=== PATIENT | female | born 1990 | race Caucasian/White ===

== ENCOUNTER 2017-01-04 16:41 | Emergency (ER) | payer OTHER ==
[2017-01-04 17:48] LABS: Basophils # (A) 0.1 k/uL (0-0.2); Basophils % (A) 1 %; CH 29.8; CHCM 33.2; Eosinophils % (A) 1 %; HCT 36.9 % (34.0-46.0); HDW 2.56; HGB 12.1 gm/dL (11.4-16.0); Luc # (Auto) 0.08; Luc % (Auto) 1; Lymphocytes # (A) 0.9 k/uL (1.0-4.8); Lymphocytes % (A) 14 %; MCH 29.7 pg (25.0-35.0); MCHC 32.9 g/dL (31.0-37.0); MCV 90.3 fL (80.0-100.0); Mean Platelet Volume 6.7; Monocytes # (A) 0.3 k/uL (0-1.0); Monocytes % (A) 4 %; Neutrophils # (A) 5.2 k/uL (1.3-7.7); Neutrophils % (A) 80 %; RBC 4.09 m/uL (3.80-5.40); WBC 6.6 k/uL (3.8-10.6); WBC (Perox) 6.57
[2017-01-04] MEDS ORDERED: ALPRAZolam 0.5 MG TAB PO STA (17:52)
[2017-01-04] MEDS ORDERED: SODIUM CHLORIDE 0.9% 1,000 ML IV ONE (17:53)
[2017-01-04] MEDS ORDERED: ONDANSETRON 4 MG/2 ML VIAL IVP STA (17:53)
[2017-01-04 18:05] LABS: ALT 22 U/L (9-52); AST 22 U/L (14-36); Alkaline Phosphatase 47 U/L (38-126); Anion Gap 12 mmol/L; Blood Urea Nitrogen 5 mg/dL (7-17); Calcium 9.9 mg/dL (8.4-10.2); Carbon Dioxide 23 mmol/L (22-30); Chloride 101 mmol/L (98-107); Glucose 96 mg/dL (74-99); Non-African American GFR(MDRD) >60 (>60 ml/min/1.73 sqM); Potassium 4.7 mmol/L (3.5-5.1); Sodium 136 mmol/L (137-145); Total Bilirubin 0.6 mg/dL (0.2-1.3); Total Protein 7.5 g/dL (6.3-8.2)
--- NOTE | 2017-01-04 18:11 | ED ---
Seizure HPI - General Chief Complaint: Seizure Stated Complaint: seizure, confusion Time Seen by Provider: 01/04/17 16:58 Source: patient, family, RN notes reviewed Mode of arrival: wheelchair Limitations: no limitations - History of Present Illness Initial Comments: Patient is a 26-year-old female since emergency room for evaluation of seizure. Patient's mother is present with patient. Patient's mother states that patient has a history of epilepsy. Patient's mother states that patient takes 1 mg Xanax 4 times a day for seizures. Patient's mother states that patient ran out of her prescription Thursday night. Patient's mother states they're unable to get a refill this weekend. Patient's mother states that patient had 2 small seizures yesterday. Patient's mother stated that patient had a grand mal seizure today while standing in the kitchen. Patient's mother states that patient was holding a pole and dropped to the ground and had a seizure that lasted about 3 minutes. Patient's mother states that they called her primary care provider told her to come to the emergency room. Patient's mother states that patient hit her head when she fell. Patient states she's having had pain in the back of her head and neck pain. Patient also states having upper back pain. Patient denies dizziness right now patient denies worsening or changes in vision. Patient denies nausea or vomiting. Patient denies chest pain or shortness of breath. Patient denies numbness or tingling going down hands or feet. - Related Data Home Medications Medication Instructions Recorded Confirmed ALPRAZolam [Xanax] 1 mg PO QID 03/02/15 01/04/17 oxyCODONE HCL 15 mg PO TID PRN 03/02/15 01/04/17 Morphine Sulfate ER [Ms Contin] 60 mg PO BID 07/10/16 01/04/17 Topiramate [Topamax] 200 mg PO DAILY 07/10/16 01/04/17 Previous Rx's Medication Instructions Recorded ALPRAZolam [Xanax] 1 mg PO QID 2 Days 01/04/17 Allergies Allergy/AdvReac Type Severity Reaction Status Date / Time ketorolac [From Toradol] Allergy Itching Verified 01/04/17 17:24 acetaminophen AdvReac Severe Liver & Verified 01/04/17 17:24 Kidney Failure amoxicillin AdvReac Abdominal Verified 01/04/17 17:24 Pain azithromycin AdvReac Abdominal Verified 01/04/17 17:24 Pain bupropion HCl AdvReac Seizure Verified 01/04/17 17:24 [From Wellbutrin] divalproex sodium AdvReac Abdominal Verified 01/04/17 17:24 [From Depakote] Pain Review of Systems ROS Statement: Those systems with pertinent positive or pertinent negative responses have been documented in the HPI. ROS Other: All systems not noted in ROS Statement are negative. Past Medical History Past Medical History: Blood Disorder, Seizure Disorder Additional Past Medical History / Comment(s): pancreatitis,anemia, eye disorder? had scar tissue removed in past. History of Any Multi-Drug Resistant Organisms: None Reported Past Surgical History: Ear Surgery Additional Past Surgical History / Comment(s): eye surgeries(scar tissue), tubes in ears, wisdom teeeth removed. Past Anesthesia/Blood Transfusion Reactions: No Reported Reaction Additional Past Anesthesia/Blood Transfusion Reaction / Comment(s): when previous intubate patient swelled up from medication Past Psychological History: Anxiety, Depression Smoking Status: Current every day smoker Past Alcohol Use History: None Reported Past Drug Use History: None Reported - Past Family History Mother Additional Family Medical History / Comment(s): total hysterectomy, cleaned out scar tissue in abdomen, endometriosis, herniated and bulging disc in back Father Additional Family Medical History / Comment(s): bleeding ulcers General Exam - General Exam Comments Initial Comments: Sitting in exam room, no distress. Limitations: no limitations General appearance: alert, in no apparent distress Head exam: Present: atraumatic, normocephalic, normal inspection Eye exam: Present: normal appearance ENT exam: Present: normal exam Neck exam: Present: normal inspection Respiratory exam: Present: normal lung sounds bilaterally. Absent: respiratory distress Cardiovascular Exam: Present: regular rate, normal rhythm, normal heart sounds GI/Abdominal exam: Present: soft, normal bowel sounds. Absent: distended, tenderness, guarding, rebound, rigid Extremities exam: Present: normal inspection Back exam: Present: normal inspection Neurological exam: Present: alert, oriented X3, CN II-XII intact, normal gait Psychiatric exam: Present: normal affect, normal mood Skin exam: Present: warm, dry, intact, normal color. Absent: rash Course Vital Signs 01/04/17 16:53 Temperature 99.2 F Pulse Rate 94 Respiratory 20 Rate Blood Pressure 127/77 O2 Sat by Pulse 98 Oximetry Medical Decision Making - Medical Decision Making Patient is a 26-year-old female presents to the emergency room for evaluation of a seizure. Patient has a history of epileptic seizures. Patient ran out of her medications on Thursday. Patient given a Xanax here and did not have any seizure while she was here. Patient states she is feeling better. Brain and C- spine CT shows no acute findings. Thoracic spine x-ray shows no acute findings. Advised patient to follow-up with primary care provider. Patient's mother states patient has an appointment with her primary care provider tomorrow morning at 9:45 AM. Patient be provided with Xanax until she can follow-up. Return parameters discussed. Case discussed Dr. San. - Lab Data Result diagrams: 01/04/17 17:30 01/04/17 17:30 Lab Results 01/04/17 01/04/17 01/04/17 Range/Units 17:30 17:30 18:23 WBC 6.6 (3.8-10.6) k/uL RBC 4.09 (3.80-5.40) m/uL Hgb 12.1 (11.4-16.0) gm/dL Hct 36.9 (34.0-46.0) % MCV 90.3 (80.0-100.0) fL MCH 29.7 (25.0-35.0) pg MCHC 32.9 (31.0-37.0) g/dL RDW 13.0 (11.5-15.5) % Plt Count 311 (150-450) k/uL Neutrophils % 80 % Lymphocytes % 14 % Monocytes % 4 % Eosinophils % 1 % Basophils % 1 % Neutrophils # 5.2 (1.3-7.7) k/uL Lymphocytes # 0.9 L (1.0-4.8) k/uL Monocytes # 0.3 (0-1.0) k/uL Eosinophils # 0.0 (0-0.7) k/uL Basophils # 0.1 (0-0.2) k/uL Sodium 136 L (137-145) mmol/L Potassium 4.7 (3.5-5.1) mmol/L Chloride 101 (98-107) mmol/L Carbon Dioxide 23 (22-30) mmol/L Anion Gap 12 mmol/L BUN 5 L (7-17) mg/dL Creatinine 0.51 L (0.52-1.04) mg/dL Est GFR (MDRD) Af Amer >60 (>60 ml/min/1.73 sqM) Est GFR (MDRD) Non-Af >60 (>60 ml/min/1.73 sqM) Glucose 96 (74-99) mg/dL Calcium 9.9 (8.4-10.2) mg/dL Total Bilirubin 0.6 (0.2-1.3) mg/dL AST 22 (14-36) U/L ALT 22 (9-52) U/L Alkaline Phosphatase 47 (38-126) U/L Total Protein 7.5 (6.3-8.2) g/dL Albumin 4.4 (3.5-5.0) g/dL Urine Color Light Yellow Urine Appearance Clear (Clear) Urine pH 8.5 H (5.0-8.0) Ur Specific [place] 1.005 (1.001-1.035) Urine Protein Negative (Negative) Urine Glucose (UA) Negative (Negative) Urine Ketones 1+ H (Negative) Urine Blood Negative (Negative) Urine Nitrite Negative (Negative) Urine Bilirubin Negative (Negative) Urine Urobilinogen <2.0 (<2.0) mg/dL Ur Leukocyte Esterase Small H (Negative) Urine WBC 10 H (0-5) /hpf Ur Squamous Epith Cells 1 (0-4) /hpf Urine Bacteria Rare H (None) /hpf Urine Opiates Screen Detected H (NotDetected) Ur Oxycodone Screen Detected H (NotDetected) Urine Methadone Screen Not Detected (NotDetected) Ur Propoxyphene Screen Not Detected (NotDetected) Ur Barbiturates Screen Not Detected (NotDetected) U Tricyclic Antidepress Not Detected (NotDetected) Ur Phencyclidine Scrn Not Detected (NotDetected) Ur Amphetamines Screen Not Detected (NotDetected) U Methamphetamines Scrn Not Detected (NotDetected) U Benzodiazepines Scrn Detected H (NotDetected) Urine Cocaine Screen Not Detected (NotDetected) U Marijuana (THC) Screen Not Detected (NotDetected) - Radiology Data Radiology results: report reviewed, image reviewed Disposition Clinical Impression: Epileptic seizure Disposition: HOME SELF-CARE Condition: Good Instructions: Recurrent Seizures in Adults (ED) Additional Instructions: Take Xanax as directed. Please follow-up with primary care provider in 24-48 hours for reevaluation. If any new symptom arises or symptoms worsen, return to ER as soon as possible. Prescriptions: ALPRAZolam [Xanax] 1 mg PO QID 2 Days Referrals: Francisco Javier Duvall MD [Primary Care Provider] - 1-2 days Time of Disposition: 20:02
[2017-01-04 18:44] LABS: Appearance,Urine Clear (Clear); Bacteria,Urine Rare /hpf; Bilirubin,Urine Negative (Negative); Glucose,Urine (UA) Negative (Negative); Ketones,Urine 1+ (Negative); Leukocyte Esterase,Urine Small (Negative); Nitrite,Urine Negative (Negative); PH, Urine 8.5 (5.0-8.0); Particle Count 2948; Protein,Urine Negative (Negative); Specific Gravity,Urine 1.005 (1.001-1.035); Squamous Epithelial Cell,Urine 1 /hpf (0-4); UA Billing (MACRO vs. MICRO) MICRO; Urobilinogen,Urine <2.0 mg/dL (<2.0); WBC,Urine 10 /hpf (0-5)
[2017-01-04] MEDS ORDERED: MORPHINE SULFATE 2 MG/ML SYRINGE IVP ONE (19:23)
--- NOTE | 2017-01-04 19:30 | CT ---
EXAMINATION TYPE: CT brain cspine wo con DATE OF EXAM: 01/04/2017 7:21 PM COMPARISON: CT brain 02/19/2016 HISTORY: 26-year-old female with multiple seizures today. History of epilepsy. CT DLP: 1238.30 mGycm Automated exposure control for dose reduction was used. Technique: Examination of the head was done in axial plane without intravenous contrast. Coronal and sagittal reconstructions performed. CT of the cervical spine was obtained in axial plane without intravenous injection of contrast mater ial. Coronal and sagittal reformatted images were obtained from the axial views for evaluation of f ractures, spinal alignment and canal. FINDINGS: Head: There is no evidence of acute intracranial hemorrhage, acute ischemic changes, mass, mass-effect, or extra-axial fluid collection. There is no effacement of cerebral sulci or basal subarachnoid cister ns. There is no hydrocephalus. There is no midline shift. De [place]-white matter distinction is preserv ed. Encephalomalacia within the anterior right frontal lobe is unchanged. Patient's gaze is divergent suggesting underlying strabismus. Otherwise, orbits and globes are intact . Paranasal sinuses and mastoid air cells are well pneumatized. Cervical spine: The alignment of the cervical spine is normal on coronal and reformatted images. There is no cranial vertebral abnormality. Fracture of the cervical spine is not seen. There is no evidence of focal disk herniation. There is no central spinal canal stenosis. Sagittal and coronal reformatted images confirm above findings. COMBINED IMPRESSION: 1. No acute intracranial abnormality seen. Stable area of encephalomalacia within the anterior right frontal lobe possibly sequela of prior traumatic insult. Clinically correlate. 2. No acute fracture or malalignment of the cervical spine.
--- NOTE | 2017-01-04 19:38 | XR ---
EXAMINATION TYPE: XR thoracic spine complete DATE OF EXAM: 01/04/2017 7:31 PM COMPARISON: NONE HISTORY: 26-year-old female with back pain after seizure today TECHNIQUE: 3 views FINDINGS: 12 rib-bearing thoracic vertebral bodies. All pedicles are visualized. Vertebral body heights are pre served and alignment is maintained. IMPRESSION: No vertebral compression collapse or malalignment.
[2017-01-04 20:23] VITALS: RESP 18
[2017-01-04 20:25] VITALS: BP 100/75; PULSE 86; TEMP 97.9
== END 2017-01-04 20:26 | disposition home or self-care (01) ==
LOC: EC 16:41
DX: G40.909 Epilepsy, unspecified, not intractable, without status epilepticus (principal); R41.0 Disorientation, unspecified; R51 Headache; M54.2 Cervicalgia; M54.6 Pain in thoracic spine; F32.9 Major depressive disorder, single episode, unspecified; F41.9 Anxiety disorder, unspecified; F17.200 Nicotine dependence, unspecified, uncomplicated; Z79.891 Long term (current) use of opiate analgesic; Z79.899 Other long term (current) drug therapy; Z88.0 Allergy status to penicillin; Z88.1 Allergy status to other antibiotic agents; Z88.6 Allergy status to analgesic agent; Z88.8 Allergy status to other drugs, medicaments and biological substances
CPT/HCPCS: 36415; 80053; 85025; 81001; 80306; 72072; 72125; 70450; 99284; 96374; 96375; 96361 ×2; J2405; J2270

== ENCOUNTER → 2017-01-22 | Outpatient (CLI) | payer OTHER ==
--- NOTE | 2017-01-22 23:11 | EEG ---
DATE OF SERVICE: 01/22/2017 REASON FOR TESTING: Seizures. CURRENT ANTIEPILEPTIC MEDICATIONS: Topamax. DESCRIPTION OF THE PROCEDURE: This EEG was performed using a 21-channel digital electroencephalograph, following international 10-20 system. DESCRIPTION OF THE RECORDING: From the beginning of the tracing, and with the patient's eyes closed, the background rhythm was mostly consisting of 10 to 11 Hz alpha frequency in the posterior occipital leads. No obvious asymmetry is seen. Photic stimulation was performed with a good driving response seen. No pathological waves were elicited. Hyperventilation was performed with a minimal build-up of amplitude seen. Again, no pathological waves were elicited. Clinical jerking activity was noticed by the certified dialysis technician, but this did not correspond with any epileptiform discharges on EEG recording. Frequent muscle and movement artifacts are seen. Near the end of the tracing, occasional spike and slow wave activity is noticed. The patient remains awake throughout the tracing. Her EKG lead showed a regular rate and rhythm. INTERPRETATION: This awake EEG is abnormal due to the presence of rare spike and slow wave activity consistent with epileptiform discharges. At other times during the tracing, the patient did have clinical jerking activity, but this did not correlate with any epileptic activity seen on the EEG tracing. Clinical correlation is recommended.
== END ==
LOC: NEUROMAIN 12:23
PROVIDERS: ATTEND Family Medicine
DX: R94.01 Abnormal electroencephalogram [EEG] (principal)
CPT/HCPCS: 95816

== ENCOUNTER 2017-02-02 17:40 | Inpatient (IN) | payer OTHER ==
[2017-02-02] MEDS ORDERED: SODIUM CHLORIDE 0.9% 1,000 ML IV STA ×2 (18:12→18:29)
[2017-02-02] MEDS ORDERED: LORazepam 2 MG/ML SYRINGE IV STA (18:15)
[2017-02-02] MEDS ORDERED: ALPRAZolam 0.5 MG TAB PO STA (18:20)
[2017-02-02] MEDS ORDERED: diphenhydrAMINE 50 MG/ML 1 ML VIAL IVP STA (18:27)
--- NOTE | 2017-02-02 18:29 | ED ---
General Adult HPI - General Source: patient, RN notes reviewed Mode of arrival: wheelchair Limitations: no limitations <Cain Treadwell - Last Filed: 02/02/17 19:23> <Salvatore Botello - Last Filed: 02/02/17 20:43> - General Chief complaint: Seizure Stated complaint: Seizure Time Seen by Provider: 02/02/17 18:03 - History of Present Illness Initial comments: Patient is a 26-year-old female with significant past medical history of seizures, chronic pain, who presents emergency room today with a chief complaint of "seizure activity". She states that over the last few hours she's been shaking. She states that she is worried about having a grand mal type seizure. She states that she starts to have these shakes before a grand mal seizure. Patient unsure exactly what seizure medication that she's on she states she cannot remember right now. She states she has been taking it. She believes it is not Topamax but this is what is listed on recent medication list. Patient states that she has had some cough congestion and decreased appetite. Patient unaware of fever at triage. She does admit to a sore throat. Patient denies any recent shortness of breath, chest pain, nausea or vomiting, dysuria or hematuria, constipation or diarrhea, headaches or visual changes, or any other complaints. (Cain Treadwell) - Related Data Home Medications Medication Instructions Recorded Confirmed oxyCODONE HCL 15 mg PO TID PRN 03/02/15 02/02/17 Morphine Sulfate ER [Ms Contin] 60 mg PO BID 07/10/16 02/02/17 ALPRAZolam [Xanax] 1 mg PO 5XD PRN 02/02/17 02/02/17 Topiramate [Topamax] 100 mg PO DAILY 02/02/17 02/02/17 Allergies Allergy/AdvReac Type Severity Reaction Status Date / Time ketorolac [From Toradol] Allergy Itching Verified 02/02/17 19:14 acetaminophen AdvReac Severe Liver & Verified 02/02/17 19:14 Kidney Failure amoxicillin AdvReac Abdominal Verified 02/02/17 19:14 Pain azithromycin AdvReac Abdominal Verified 02/02/17 19:14 Pain bupropion HCl AdvReac Seizure Verified 02/02/17 19:14 [From Wellbutrin] divalproex sodium AdvReac Abdominal Verified 02/02/17 19:14 [From Depakote] Pain Review of Systems ROS Other: All systems not noted in ROS Statement are negative. <EbenCain - Last Filed: 02/02/17 19:23> ROS Other: All systems not noted in ROS Statement are negative. <Salvatore Botello - Last Filed: 02/02/17 20:43> ROS Statement: Those systems with pertinent positive or pertinent negative responses have been documented in the HPI. Past Medical History Past Medical History: Blood Disorder, Seizure Disorder Additional Past Medical History / Comment(s): pancreatitis,anemia, eye disorder? had scar tissue removed in past. History of Any Multi-Drug Resistant Organisms: None Reported Past Surgical History: Ear Surgery Additional Past Surgical History / Comment(s): eye surgeries(scar tissue), tubes in ears, wisdom teeeth removed. Past Anesthesia/Blood Transfusion Reactions: No Reported Reaction Additional Past Anesthesia/Blood Transfusion Reaction / Comment(s): when previous intubate patient swelled up from medication Past Psychological History: Anxiety, Depression Smoking Status: Current every day smoker Past Alcohol Use History: None Reported Past Drug Use History: None Reported - Past Family History Mother Additional Family Medical History / Comment(s): total hysterectomy, cleaned out scar tissue in abdomen, endometriosis, herniated and bulging disc in back Father Additional Family Medical History / Comment(s): bleeding ulcers <EbenCain - Last Filed: 02/02/17 19:23> General Exam Limitations: no limitations <TreadwellCain - Last Filed: 02/02/17 19:23> <Salvatore Botello - Last Filed: 02/02/17 20:43> - General Exam Comments Initial Comments: General: The patient is awake and alert, in no distress, and does not appear acutely ill. Eye: Pupils are equal, round and reactive to light, extra-ocular movements are intact. No nystagmus. There is normal conjunctiva bilaterally. No signs of icterus. Ears, nose, mouth and throat: There are moist mucous membranes and no oral lesions. 2+ tonsils with uvula midline. Anterior cervical lymphadenopathy present on the left. TMs clear bilaterally. Neck: The neck is supple, there is no tenderness or JVD. Cardiovascular: There is a regular rate and rhythm. No murmur, rub or gallop is appreciated. Respiratory: Lungs are clear to auscultation, respirations are non-labored, breath sounds are equal. No wheezes, stridor, rales, or rhonchi. Gastrointestinal: Soft, non-distended, non-tender abdomen without masses or organomegaly noted. There is no rebound or guarding present. No CVA tenderness. Bowel sounds are unremarkable. Musculoskeletal: Normal ROM, no tenderness. Strength 5/5. Sensation intact. Pulses equal bilaterally 2+. Neurological: A&O x 3. CN II-XII intact, There are no obvious motor or sensory deficits. Coordination appears grossly intact. Speech is normal. Skin: Patient does have a hive-like rash locally around her neck and upper chest wall. Psychiatric: Cooperative. (Cain Treadwell) Medical Decision Making - Lab Data Result diagrams: 02/02/17 18:37 02/02/17 18:37 <Cain Treadwell - Last Filed: 02/02/17 19:23> - Lab Data Result diagrams: 02/02/17 18:37 02/02/17 18:37 <Salvatore Botello - Last Filed: 02/02/17 20:43> - Medical Decision Making Vital decision making. The patient's white count is 5.9 hemoglobin 13.9 hematocrit of 42, potassium 4.8 with a BUN of 7 creatinine 0.54 the GFR greater than 60. Glucose 81. Patient's strep test was negative Monospot negative. Urine shows large leuk esterase 44 reds greater than 180 whites. test was negative. Patient does have some back discomfort presents emergency room with fever. She does have a history of urinary tract infections in the past. The case discussed with her attending Dr. Duvall patient be admitted his service started on Levaquin. (Salvatore Botello) - Lab Data Lab Results 02/02/17 02/02/17 02/02/17 Range/Units 18:37 18:37 18:37 WBC 5.9 (3.8-10.6) k/uL RBC 4.62 (3.80-5.40) m/uL Hgb 13.9 (11.4-16.0) gm/dL Hct 42.3 (34.0-46.0) % MCV 91.6 (80.0-100.0) fL MCH 30.1 (25.0-35.0) pg MCHC 32.9 (31.0-37.0) g/dL RDW 12.8 (11.5-15.5) % Plt Count 384 (150-450) k/uL Neutrophils % 68 % Lymphocytes % 24 % Monocytes % 5 % Eosinophils % 1 % Basophils % 1 % Neutrophils # 4.0 (1.3-7.7) k/uL Lymphocytes # 1.4 (1.0-4.8) k/uL Monocytes # 0.3 (0-1.0) k/uL Eosinophils # 0.0 (0-0.7) k/uL Basophils # 0.1 (0-0.2) k/uL Sodium 143 (137-145) mmol/L Potassium 4.8 (3.5-5.1) mmol/L Chloride 105 (98-107) mmol/L Carbon Dioxide 20 L (22-30) mmol/L Anion Gap 18 mmol/L BUN 7 (7-17) mg/dL Creatinine 0.54 (0.52-1.04) mg/dL Est GFR (MDRD) Af Amer >60 (>60 ml/min/1.73 sqM) Est GFR (MDRD) Non-Af >60 (>60 ml/min/1.73 sqM) Glucose 81 (74-99) mg/dL Calcium 10.3 H (8.4-10.2) mg/dL Total Bilirubin 1.0 (0.2-1.3) mg/dL AST 26 (14-36) U/L ALT 20 (9-52) U/L Alkaline Phosphatase 54 (38-126) U/L Total Protein 8.6 H (6.3-8.2) g/dL Albumin 5.2 H (3.5-5.0) g/dL Urine Color Urine Appearance (Clear) Urine pH (5.0-8.0) Ur Specific [place] (1.001-1.035) Urine Protein (Negative) Urine Glucose (UA) (Negative) Urine Blood (Negative) Urine Nitrite (Negative) Urine Bilirubin (Negative) Urine Urobilinogen (<2.0) mg/dL Ur Leukocyte Esterase (Negative) Urine RBC (0-5) /hpf Urine WBC (0-5) /hpf Ur Squamous Epith Cells (0-4) /hpf Urine Bacteria (None) /hpf Hyaline Casts (0-2) /lpf Urine Mucus (None) /hpf Urine HCG, Qual (Not Detectd) Heterophile Antibody Negative (Negative) Group A Strep Rapid (Negative) 02/02/17 02/02/17 02/02/17 Range/Units 19:05 19:46 19:46 WBC (3.8-10.6) k/uL RBC (3.80-5.40) m/uL Hgb (11.4-16.0) gm/dL Hct (34.0-46.0) % MCV (80.0-100.0) fL MCH (25.0-35.0) pg MCHC (31.0-37.0) g/dL RDW (11.5-15.5) % Plt Count (150-450) k/uL Neutrophils % % Lymphocytes % % Monocytes % % Eosinophils % % Basophils % % Neutrophils # (1.3-7.7) k/uL Lymphocytes # (1.0-4.8) k/uL Monocytes # (0-1.0) k/uL Eosinophils # (0-0.7) k/uL Basophils # (0-0.2) k/uL Sodium (137-145) mmol/L Potassium (3.5-5.1) mmol/L Chloride (98-107) mmol/L Carbon Dioxide (22-30) mmol/L Anion Gap mmol/L BUN (7-17) mg/dL Creatinine (0.52-1.04) mg/dL Est GFR (MDRD) Af Amer (>60 ml/min/1.73 sqM) Est GFR (MDRD) Non-Af (>60 ml/min/1.73 sqM) Glucose (74-99) mg/dL Calcium (8.4-10.2) mg/dL Total Bilirubin (0.2-1.3) mg/dL AST (14-36) U/L ALT (9-52) U/L Alkaline Phosphatase (38-126) U/L Total Protein (6.3-8.2) g/dL Albumin (3.5-5.0) g/dL Urine Color Yellow Urine Appearance Cloudy H (Clear) Urine pH 6.0 (5.0-8.0) Ur Specific [place] 1.027 (1.001-1.035) Urine Protein 2+ H (Negative) Urine Glucose (UA) Negative (Negative) Urine Blood Small H (Negative) Urine Nitrite Negative (Negative) Urine Bilirubin 1+ H (Negative) Urine Urobilinogen 4.0 (<2.0) mg/dL Ur Leukocyte Esterase Large H (Negative) Urine RBC 44 H (0-5) /hpf Urine WBC >182 H (0-5) /hpf Ur Squamous Epith Cells 22 H (0-4) /hpf Urine Bacteria Rare H (None) /hpf Hyaline Casts 15 H (0-2) /lpf Urine Mucus Many H (None) /hpf Urine HCG, Qual Not Detected (Not Detectd) Heterophile Antibody (Negative) Group A Strep Rapid Negative (Negative) Disposition <Cain Treadwell - Last Filed: 02/02/17 19:23> <Salvatore Botello - Last Filed: 02/02/17 20:43> Clinical Impression: Urinary tract infection Disposition: ADMITTED IP TO THIS HOSP Condition: Stable Referrals: Francisco Javier Duvall MD [Primary Care Provider] - 1-2 days
[2017-02-02] MEDS ORDERED: IBUPROFEN IV 400 MG in SODIUM CHLORIDE 0.9% 250 ML IV ONE (18:30)
[2017-02-02 18:57] LABS: Basophils # (A) 0.1 k/uL (0-0.2); Basophils % (A) 1 %; CH 29.9; CHCM 32.8; Eosinophils % (A) 1 %; HCT 42.3 % (34.0-46.0); HDW 2.41; HGB 13.9 gm/dL (11.4-16.0); Luc # (Auto) 0.13; Luc % (Auto) 2; Lymphocytes # (A) 1.4 k/uL (1.0-4.8); Lymphocytes % (A) 24 %; MCH 30.1 pg (25.0-35.0); MCHC 32.9 g/dL (31.0-37.0); MCV 91.6 fL (80.0-100.0); Mean Platelet Volume 6.9; Monocytes # (A) 0.3 k/uL (0-1.0); Monocytes % (A) 5 %; Neutrophils % (A) 68 %; RBC 4.62 m/uL (3.80-5.40); RDW 12.8 % (11.5-15.5); WBC 5.9 k/uL (3.8-10.6); WBC (Perox) 6.04
[2017-02-02 19:09] LABS: ALT 20 U/L (9-52); AST 26 U/L (14-36); Alkaline Phosphatase 54 U/L (38-126); Anion Gap 18 mmol/L; Blood Urea Nitrogen 7 mg/dL (7-17); Calcium 10.3 mg/dL (8.4-10.2); Carbon Dioxide 20 mmol/L (22-30); Chloride 105 mmol/L (98-107); Glucose 81 mg/dL (74-99); Non-African American GFR(MDRD) >60 (>60 ml/min/1.73 sqM); Potassium 4.8 mmol/L (3.5-5.1); Sodium 143 mmol/L (137-145); Total Protein 8.6 g/dL (6.3-8.2)
--- NOTE | 2017-02-02 19:31 | XR ---
EXAMINATION TYPE: XR chest 2V DATE OF EXAM: 02/02/2017 7:27 PM COMPARISON: 01/10/2016 HISTORY: Seizure. Fever. TECHNIQUE: Frontal and lateral views of the chest are obtained. FINDINGS: Heart and mediastinum are normal. Lungs are clear. Diaphragm is normal. There are chest le ads. Bony thorax is intact. IMPRESSION: Normal chest. No change.
[2017-02-02 20:15] LABS: Appearance,Urine Cloudy (Clear); Bacteria,Urine Rare /hpf; Bilirubin,Urine 1+ (Negative); Glucose,Urine (UA) Negative (Negative); Ketones,Urine 4+ (Negative); Leukocyte Esterase,Urine Large (Negative); Mucus,Urine Many /hpf; Nitrite,Urine Negative (Negative); Particle Count 25238; Protein,Urine 2+ (Negative); RBC,Urine 44 /hpf (0-5); Specific Gravity,Urine 1.027 (1.001-1.035); Squamous Epithelial Cell,Urine 22 /hpf (0-4); UA Billing (MACRO vs. MICRO) MICRO; WBC,Urine >182 /hpf (0-5)
[2017-02-02] MEDS ORDERED: LEVOFLOXACIN 500MG-D5W PMX 500 MG in DEXTROSE/WATER 1 100ML.BAG IVPB STA (20:31)
[2017-02-02] MEDS ORDERED: IBUPROFEN 400 MG TAB PO PRN (20:44)
[2017-02-02] MEDS ORDERED: NALOXONE 0.4 MG/ML 1 ML VIAL IV PRN (20:44)
[2017-02-02] MEDS: SODIUM CHLORIDE 0.9% 1,000 ML IV SCH (22:32)
[2017-02-02] MEDS ORDERED: ONDANSETRON 4 MG/2 ML VIAL IVP PRN (22:53)
[2017-02-02] MEDS: MORPHINE SULFATE ER 60 MG TABLET PO SCH (23:08)
[2017-02-03 00:13] VITALS: RESP 16
[2017-02-03 07:29] LABS: Basophils % (A) 1 %; CH 29.6; Eosinophils # (A) 0.1 k/uL (0-0.7); Eosinophils % (A) 2 %; HDW 2.38; HGB 11.5 gm/dL (11.4-16.0); Luc # (Auto) 0.22; Luc % (Auto) 4; Lymphocytes % (A) 40 %; MCH 29.8 pg (25.0-35.0); MCHC 32.1 g/dL (31.0-37.0); Mean Platelet Volume 6.7; Monocytes # (A) 0.3 k/uL (0-1.0); Monocytes % (A) 6 %; Neutrophils # (A) 2.4 k/uL (1.3-7.7); Neutrophils % (A) 47 %; RBC 3.87 m/uL (3.80-5.40); RDW 12.8 % (11.5-15.5); WBC 5.1 k/uL (3.8-10.6); WBC (Perox) 5.06
[2017-02-03 07:40] LABS: Anion Gap 13 mmol/L; Blood Urea Nitrogen 4 mg/dL (7-17); Calcium 9.3 mg/dL (8.4-10.2); Carbon Dioxide 19 mmol/L (22-30); Chloride 109 mmol/L (98-107); Glucose 75 mg/dL (74-99); Non-African American GFR(MDRD) >60 (>60 ml/min/1.73 sqM); Potassium 4.1 mmol/L (3.5-5.1); Sodium 141 mmol/L (137-145)
[2017-02-03] MEDS: MORPHINE SULFATE ER 60 MG TABLET PO SCH ×2 (08:54→21:49)
[2017-02-03] MEDS: PANTOPRAZOLE 40 MG/10 ML VIAL IV SCH (08:55)
[2017-02-03] MEDS: TOPIRAMATE 100 MG TAB PO SCH (08:56)
--- NOTE | 2017-02-03 09:20 | US ---
EXAMINATION TYPE: US kidneys/renal and bladder DATE OF EXAM: 02/03/2017 COMPARISON: CT abdomen and pelvis July 11, 2016 CLINICAL HISTORY: left flank pain. EXAM MEASUREMENTS: Right Kidney: 8.5 x 4.4 x4.6 cm Left Kidney: 9.7 x 5.4 x 4.6 cm Patient had to lay RPO for her ultrasound due to intense pain on left. Right Kidney: No hydronephrosis or masses seen Left Kidney: No hydronephrosis or masses seen Bladder: wnl Left jet seen. There is no evidence for hydronephrosis at this point in time. No nephrolithiasis is seen. No kristi s are identified. The urinary bladder is anechoic. Bilateral ureteral jets are not seen. Exam slightly suboptimal due to patient discomfort. IMPRESSION: No hydronephrosis is evident bilaterally.
[2017-02-03 11:11] VITALS: BMI 16.3
[2017-02-03] MEDS: SODIUM CHLORIDE 0.9% 1,000 ML IV SCH ×2 (11:37→22:50)
[2017-02-03] MEDS: ALPRAZolam 0.5 MG TAB PO PRN (13:24)
--- NOTE | 2017-02-03 16:11 | P.HPIM ---
History of Present Illness H&P Date: 02/03/17 Chief Complaint: Abdominal pain Patient is a 26-year-old female, patient of Dr. Duvall in the outpatient setting, with medical history significant for seizure disorder, pancreatitis anemia, urinary tract infection, chronic pain syndrome, legally blind, anxiety, depression, nicotine dependence, kidney and liver failure with dialysis in 2010, and previous nephrolithiasis. Patient presented to the emergency department with chief complaint of "seizure activity" described as shaking. Patient was worried because she had a grand mal seizure on January 09 with similar symptoms prior to experiencing this seizure. Patient did have a temperature of 100.8 on admission. Urinalysis positive for large amount of leukocyte esterase and greater than 182 WBC. Patient was given a fluid bolus of 1 L normal saline and started on IV Levaquin. Blood and urine cultures were obtained. Patient was admitted to the medical floor for further treatment. Upon examination, patient complains of left flank pain and left upper quadrant pain. Patient reports mild nausea without vomiting. Patient didn't eat her breakfast this morning. Denies chills, fevers, shortness of breath, chest pain , numbness or tingling, diarrhea or constipation. Patient is urinating without difficulty. Past Medical History Past Medical History: Blood Disorder, Seizure Disorder Additional Past Medical History / Comment(s): pancreatitis,anemia, eye disorder? had scar tissue removed in past; kidney and liver failure with dialysis 2010- resolved now. History of Any Multi-Drug Resistant Organisms: None Reported Past Surgical History: Ear Surgery Additional Past Surgical History / Comment(s): eye surgeries(scar tissue), tubes in ears, wisdom teeeth removed. Past Anesthesia/Blood Transfusion Reactions: No Reported Reaction Additional Past Anesthesia/Blood Transfusion Reaction / Comment(s): when previous intubate patient swelled up from medication Past Psychological History: Anxiety, Depression Smoking Status: Current every day smoker Past Alcohol Use History: None Reported Past Drug Use History: None Reported - Past Family History Mother Additional Family Medical History / Comment(s): total hysterectomy, cleaned out scar tissue in abdomen, endometriosis, herniated and bulging disc in back Father Additional Family Medical History / Comment(s): bleeding ulcers Medications and Allergies Home Medications Medication Instructions Recorded Confirmed Type oxyCODONE HCL 15 mg PO TID PRN 03/02/15 02/02/17 History Morphine Sulfate ER [Ms Contin] 60 mg PO BID 07/10/16 02/02/17 History ALPRAZolam [Xanax] 1 mg PO 5XD PRN 02/02/17 02/02/17 History Topiramate [Topamax] 100 mg PO DAILY 02/02/17 02/02/17 History Allergies Allergy/AdvReac Type Severity Reaction Status Date / Time ketorolac [From Toradol] Allergy Itching Verified 02/02/17 19:14 acetaminophen AdvReac Severe Liver & Verified 02/02/17 19:14 Kidney Failure amoxicillin AdvReac Abdominal Verified 02/02/17 19:14 Pain azithromycin AdvReac Abdominal Verified 02/02/17 19:14 Pain bupropion HCl AdvReac Seizure Verified 02/02/17 19:14 [From Wellbutrin] divalproex sodium AdvReac Abdominal Verified 02/02/17 19:14 [From Depakote] Pain Physical Exam Vitals: Vital Signs Temp Pulse Pulse Resp BP BP Pulse Ox 02/03/17 15:30 91 16 02/03/17 08:00 91 16 02/03/17 07:00 99.5 F 91 16 113/76 99 02/02/17 23:00 99.3 F 101 H 16 135/70 100 02/02/17 21:54 100.9 F H 96 18 106/65 99 02/02/17 20:41 100.9 F H 90 18 106/65 99 02/02/17 19:09 91 18 115/72 99 02/02/17 17:54 100.8 F H 120 H 18 154/76 96 Intake and Output 02/03/17 02/03/17 02/03/17 06:59 14:59 22:59 Intake Total 1040 360 Balance 1040 360 Intake: IV 640 Sodium Chloride 0.9% 1, 640 000 ml @ 80 mls/hr IV . [id number] Rx#:[id number] Oral 400 360 Other: Voiding Method Toilet Toilet Toilet # Voids 1 3 1 Weight 35.5 kg 35.5 kg Patient Weight 02/04/17 06:59 Weight 35.5 kg GENERAL: Pt awake and alert, thin appearing, appears in no acute distress. HEAD: Atraumatic, normocephalic. EYES: Pupils equal, round, nystagmus present. Sclera anicteric, conjunctiva are normal. Scar tissue present. Patient is legally blind. ENT: Oropharynx clear without exudates. Moist mucous membranes. NECK:Normal range of motion, supple without lymphadenopathy or JVD. LUNGS: Breath sounds clear to auscultation bilaterally. No wheezes, rales, or rhonchi. HEART: Heart S1, S2, no S3 or S4. Regular rate and rhythm. No murmurs, rubs or gallops. ABDOMEN: Soft, mild left upper quadrant tenderness, nondistended, normoactive bowel sounds. No guarding, no rebound. No masses or organomegaly appreciated. Positive left CVA tenderness. EXTREMITIES: 2+ peripheral pulses. No edema. No calf tenderness. NEUROLOGICAL: Pt oriented x 3. Cranial nerves II through XII grossly intact. Strength and sensation grossly intact. PSYCH: Normal mood, normal affect. SKIN: Warm, dry, intact. Normal turgor. No rashes or lesions. Results CBC & Chem 7: 02/03/17 06:57 02/03/17 06:57 Labs: Abnormal Lab Results - Last 24 Hours (Table) 02/02/17 02/02/17 02/03/17 Range/Units 18:37 19:46 06:57 Chloride 109 H (98-107) mmol/L Carbon Dioxide 20 L 19 L (22-30) mmol/L BUN 4 L (7-17) mg/dL Creatinine 0.48 L (0.52-1.04) mg/dL Calcium 10.3 H (8.4-10.2) mg/dL Total Protein 8.6 H (6.3-8.2) g/dL Albumin 5.2 H (3.5-5.0) g/dL Urine Appearance Cloudy H (Clear) Urine Protein 2+ H (Negative) Urine Ketones 4+ H (Negative) Urine Blood Small H (Negative) Urine Bilirubin 1+ H (Negative) Ur Leukocyte Esterase Large H (Negative) Urine RBC 44 H (0-5) /hpf Urine WBC >182 H (0-5) /hpf Ur Squamous Epith Cells 22 H (0-4) /hpf Urine Bacteria Rare H (None) /hpf Hyaline Casts 15 H (0-2) /lpf Urine Mucus Many H (None) /hpf Microbiology - Last 24 Hours (Table) 02/02/17 19:46 Urine Culture - Preliminary Urine,Voided 02/02/17 19:05 Group A Strep Throat Culture - Preliminary Throat US - abdomen: report reviewed (No evidence for hydronephrosis. No nephrolithiasis. No masses are identified. Urinary bladder is anechoic. Bilateral urethral jets are not seen.) Thrombosis Risk Factor Assmnt - DVT/VTE Prophylaxis DVT/VTE Prophylaxis: Mechanical Prophylaxis ordered - Choose All That Apply Any of the Below Risk Factors Present?: No Other Risk Factors: No Other congenital or acquired thrombophilia - If yes, enter type in comment: No Thrombosis Risk Factor Assessment Level: Very Low Risk Assessment and Plan Plan: Impression: 1. Severe sepsis, present on admission, suspect secondary to pyelonephritis. 2. Legally blindness with nystagmus. 3. History of seizure disorder. 4. Chronic pain syndrome. 5. History of pancreatitis. 6. Legally blind with nystagmus. 7. Anxiety and depression, stable. 8. Nicotine dependence. 9. Blood disorder. Plan: 1. Continue to monitor patient. Continue antibiotics. Continue IV hydration. Will check lipase for left upper quadrant pain and left flank pain. Home medications have been reviewed and resumed. Continue supportive treatment and pain management. Smoking cessation encouraged. Await final urine and blood culture. The above impression and plan have been discussed and directed by Dr. Duvall. Sloan REED acting as scribe for Dr. Duvall.
[2017-02-03] MEDS: LEVOFLOXACIN 500MG-D5W PMX 500 MG in DEXTROSE/WATER 1 100ML.BAG IVPB SCH (21:48)
[2017-02-04] MEDS: ALPRAZolam 0.5 MG TAB PO PRN ×2 (02:46→10:59)
[2017-02-04] MEDS: MORPHINE SULFATE ER 60 MG TABLET PO SCH ×2 (08:22→19:45)
[2017-02-04] MEDS: TOPIRAMATE 100 MG TAB PO SCH (08:23)
[2017-02-04] MEDS: PANTOPRAZOLE 40 MG/10 ML VIAL IV SCH (08:24)
[2017-02-04 08:26] LABS: Basophils % (A) 1 %; CH 29.6; CHCM 31.8; Eosinophils # (A) 0.1 k/uL (0-0.7); Eosinophils % (A) 2 %; HCT 31.9 % (34.0-46.0); HDW 2.42; HGB 10.1 gm/dL (11.4-16.0); Luc # (Auto) 0.15; Luc % (Auto) 4; Lymphocytes # (A) 1.9 k/uL (1.0-4.8); Lymphocytes % (A) 43 %; MCH 29.7 pg (25.0-35.0); MCHC 31.8 g/dL (31.0-37.0); MCV 93.4 fL (80.0-100.0); Monocytes # (A) 0.3 k/uL (0-1.0); Monocytes % (A) 8 %; Neutrophils # (A) 1.9 k/uL (1.3-7.7); Neutrophils % (A) 43 %; RBC 3.42 m/uL (3.80-5.40); RDW 12.7 % (11.5-15.5); WBC 4.3 k/uL (3.8-10.6)
[2017-02-04 08:35] LABS: Anion Gap 10 mmol/L; Blood Urea Nitrogen 3 mg/dL (7-17); Calcium 8.9 mg/dL (8.4-10.2); Carbon Dioxide 19 mmol/L (22-30); Chloride 108 mmol/L (98-107); Glucose 75 mg/dL (74-99); Non-African American GFR(MDRD) >60 (>60 ml/min/1.73 sqM); Potassium 3.7 mmol/L (3.5-5.1); Sodium 137 mmol/L (137-145)
[2017-02-04] MEDS: SODIUM CHLORIDE 0.9% 1,000 ML IV SCH (11:56)
[2017-02-04] MEDS: LEVOFLOXACIN 500MG-D5W PMX 500 MG in DEXTROSE/WATER 1 100ML.BAG IVPB SCH (19:32)
[2017-02-05] MEDS: ALPRAZolam 0.5 MG TAB PO PRN (03:10)
[2017-02-05] MEDS ORDERED: PANTOPRAZOLE 40 MG TABLET PO SCH (07:30)
[2017-02-05] MEDS: SODIUM CHLORIDE 0.9% 1,000 ML IV SCH (07:49)
[2017-02-05] MEDS: MORPHINE SULFATE ER 60 MG TABLET PO SCH (07:52)
[2017-02-05] MEDS: TOPIRAMATE 100 MG TAB PO SCH (07:52)
[2017-02-05 08:07] VITALS: BP 92/69; PULSE 69; TEMP 97.7
--- NOTE | 2017-02-05 12:18 | P.DS ---
Providers Date of admission: 02/02/17 20:44 Expected date of discharge: 02/04/17 Attending physician: Francisco Javier Duvall Primary care physician: Francisco Javier Duvall [facility] Course: Patient is a 26-year-old female, patient of Dr. Duvall in the outpatient setting, with medical history significant for seizure disorder, pancreatitis anemia, urinary tract infection, chronic pain syndrome, legally blind, anxiety, depression, nicotine dependence, kidney and liver failure with dialysis in 2010, and previous nephrolithiasis. Patient presented to the emergency department with chief complaint of "seizure activity" described as shaking. Patient was worried because she had a grand mal seizure on January 09 with similar symptoms prior to experiencing this seizure. Patient did have a temperature of 100.8 on admission. Urinalysis positive for large amount of leukocyte esterase and greater than 182 WBC. Patient was given a fluid bolus of 1 L normal saline and started on IV Levaquin. Blood and urine cultures were obtained. Patient was admitted to the medical floor for further treatment. Patient underwent a ultrasound of the kidneys and bladder with no hydronephrosis evident bilaterally. Final urine culture negative for bacterial growth. Patient improved with IV hydration, antibiotics, and conservative treatment and was deemed stable for discharge to home with close follow-up in the outpatient setting. Discharge diagnoses: 1. Severe sepsis, present on admission, suspect secondary to pyelonephritis. 2. Legally blindness with nystagmus. 3. History of seizure disorder. 4. Chronic pain syndrome. 5. History of pancreatitis. 6. Legally blind with nystagmus. 7. Anxiety and depression, stable. 8. Nicotine dependence. 9. Blood disorder. The above impression and plan have been discussed and directed by Dr. Duvall. Sloan REED acting as scribe for Dr. Duvall. Pertinent Studies: Chest x-ray; abdomen/bladder ultrasound Patient Condition at Discharge: Good Plan - Discharge Summary New Discharge Prescriptions: New Ibuprofen [Motrin] 400 mg PO Q6HR PRN tab PRN Reason: Mild Pain Or Fever > 100.5 Levofloxacin [Levaquin] 500 mg PO DAILY #5 tab Continue oxyCODONE HCL 15 mg PO TID PRN PRN Reason: Breakthrough Pain Morphine Sulfate ER [Ms Contin] 60 mg PO BID Topiramate [Topamax] 100 mg PO DAILY ALPRAZolam [Xanax] 1 mg PO 5XD PRN PRN Reason: Seizure/Anxiety Discharge Medication List oxyCODONE HCL 15 mg PO TID PRN 03/02/15 [History] Morphine Sulfate ER [Ms Contin] 60 mg PO BID 07/10/16 [History] ALPRAZolam [Xanax] 1 mg PO 5XD PRN 02/02/17 [History] Topiramate [Topamax] 100 mg PO DAILY 02/02/17 [History] Ibuprofen [Motrin] 400 mg PO Q6HR PRN tab 02/04/17 [Rx] Levofloxacin [Levaquin] 500 mg PO DAILY #5 tab 02/04/17 [Rx] Follow up Appointment(s)/Referral(s): Francisco Javier Duvall MD [Primary Care Provider] - 02/09/17 11:45 am Patient Instructions/Handouts: Urinary Tract Infection in Women (DC) Discharge Disposition: HOME SELF-CARE
--- NOTE | 2017-02-09 10:49 | CDI ---
In responding to this query, please exercise your independent professional judgment. The [facility] Coding Staff and Clinical Documentation Specialists appreciate your assistance in clarifying documentation, maintaining compliance with coding guidelines, accurately documenting patients condition and capturing severity of illness. The fact that a question is asked does not imply that any particular answer is desired or expected. Communication forms are a method of clarifying documentation and are not made part of the Legal Health Record. Thank you in advance for your clarification. Last Revision, November 2015 Efra Capps [address] [facility] [address] [place] [address] Documentation Clarification Form Date: 02/09/2017 10:31:00 AM From: Rupa Henderson/Marisa Pike Admit Date: 02/02/2017 8:44:00 PM Patient Name: Barb Zapata Visit Number: [id number] Discharge Date: Dr. Francisco Javier Duvall Severe sepsis suspect secondary to pyelonephritis is documented in the H&P and discharge summary. Patient history/risk factors: Patient presented with complaints of left flank and left upper quadrant pain. The patient had mild nausea but no vomiting. Clinical Indicators: Patient was oriented X3. Labs: WBC 5.9, lactic acid 1.2 Vital Signs: T. 100.8, P. 101, R. 18, BP 154/76 Treatment: IV Levofloxacin and IV Saline Please document confirmation of the diagnosis of Severe Sepsis in your progress notes and/or discharge summary, along with its associated clinical indicators ( i.e., signs, symptoms, findings, treatments, monitoring). If this condition was ruled out or documented in error, please indicate in your progress notes and/or discharge summary. FYI: Press F11 to launch patient chart Place X here if this finding has no clinical significance, is not applicable or if you are not able to provide any additional documentation. EDITH
--- NOTE | 2017-02-09 11:00 | CDI ---
In responding to this query, please exercise your independent professional judgment. The [facility] Coding Staff and Clinical Documentation Specialists appreciate your assistance in clarifying documentation, maintaining compliance with coding guidelines, accurately documenting patients condition and capturing severity of illness. The fact that a question is asked does not imply that any particular answer is desired or expected. Communication forms are a method of clarifying documentation and are not made part of the Legal Health Record. Thank you in advance for your clarification. Last Revision, July 2015 Efra Capps [address] [facility] [place] [address] Documentation Clarification Form Date: 02/09/2017 10:57:00 AM From: Rupa Henderson/Marisa Pike Admit Date: 02/02/2017 8:44:00 PM Patient Name: Barb Zapata Visit Number: [id number] Discharge Date: Dr. Francisco Javier Duvall Pyelonephritis is documented in the H&P and discharge summary. Patient history/risk factors: Patient has a history of urinary tract infection, seizures and chronic pain syndrome. Clinical Indicators: Left upper quadrant and left flank pain. Labs: Urinalysis - Cloudy, protein - 2+, Ketones 4+, blood small, bilirubin 1+, leukocyte esterase large, rbc 44, wbc greater than 182, bacteria rare, casts 15 , mucus many Vital Signs: T. 100.8, P. 120, R. 18, BP 154/76 Medication: IV Levofloxacin In your professional opinion, can you please clarify the acuity of the pyelonephritis? - Acute - Chronic - Other - Unable to determine Please document in your progress notes and discharge summary in order to capture severity of illness and risk of mortality. Include clinical findings that support your diagnosis. FYI: Press F11 to launch patient chart. Place X here if this finding has no clinical significance, is not applicable or if you are not able to provide any additional documentation. EDITH
--- NOTE | 2017-02-10 15:30 | CDI ---
In responding to this query, please exercise your independent professional judgment. The [facility] Coding Staff and Clinical Documentation Specialists appreciate your assistance in clarifying documentation, maintaining compliance with coding guidelines, accurately documenting patients condition and capturing severity of illness. The fact that a question is asked does not imply that any particular answer is desired or expected. Communication forms are a method of clarifying documentation and are not made part of the Legal Health Record. Thank you in advance for your clarification. Last Revision, November 2015 Efra Capps [address] [place] [address] Documentation Clarification Form Date: 02/09/2017 10:31:00 AM From: Rupa Henderson/Marisa Pike Admit Date: 02/02/2017 8:44:00 PM Patient Name: Barb Zapata Visit Number: [id number] Discharge Date: Sloan Jurado Severe sepsis suspect secondary to pyelonephritis is documented in the H&P and discharge summary. Patient history/risk factors: Patient presented with complaints of left flank and left upper quadrant pain. The patient had mild nausea but no vomiting. Clinical Indicators: Patient was oriented X3. Labs: WBC 5.9, lactic acid 1.2 Vital Signs: T. 100.8, P. 101, R. 18, BP 154/76 Treatment: IV Levofloxacin and IV Saline Please document confirmation of the diagnosis of Severe Sepsis in your progress notes and/or discharge summary, along with its associated clinical indicators ( i.e., signs, symptoms, findings, treatments, monitoring). If this condition was ruled out or documented in error, please indicate in your progress notes and/or discharge summary. FYI: Press F11 to launch patient chart Place X here if this finding has no clinical significance, is not applicable or if you are not able to provide any additional documentation. EDITH
--- NOTE | 2017-02-10 15:33 | CDI ---
In responding to this query, please exercise your independent professional judgment. The [facility] Coding Staff and Clinical Documentation Specialists appreciate your assistance in clarifying documentation, maintaining compliance with coding guidelines, accurately documenting patients condition and capturing severity of illness. The fact that a question is asked does not imply that any particular answer is desired or expected. Communication forms are a method of clarifying documentation and are not made part of the Legal Health Record. Thank you in advance for your clarification. Last Revision, July 2015 Efra Capps [address] [facility] [place] [address] Documentation Clarification Form Date: 02/09/2017 10:57:00 AM From: Rupa Henderson/Marisa Pike Admit Date: 02/02/2017 8:44:00 PM Patient Name: Barb Zapata Visit Number: [id number] Discharge Date: Konstantinkari Jurado Pyelonephritis is documented in the H&P and discharge summary. Patient history/risk factors: Patient has a history of urinary tract infection, seizures and chronic pain syndrome. Clinical Indicators: Left upper quadrant and left flank pain. Labs: Urinalysis - Cloudy, protein - 2+, Ketones 4+, blood small, bilirubin 1+, leukocyte esterase large, rbc 44, wbc greater than 182, bacteria rare, casts 15 , mucus many Vital Signs: T. 100.8, P. 120, R. 18, BP 154/76 Medication: IV Levofloxacin In your professional opinion, can you please clarify the acuity of the pyelonephritis? - Acute - Chronic - Other - Unable to determine Please document in your progress notes and discharge summary in order to capture severity of illness and risk of mortality. Include clinical findings that support your diagnosis. FYI: Press F11 to launch patient chart. Place X here if this finding has no clinical significance, is not applicable or if you are not able to provide any additional documentation. EDITH
== END 2017-02-05 11:00 | disposition home or self-care (01) | DRG 872 ==
LOC: EC 17:40 → 5MS5E 20:44
PROVIDERS: ADMIT Family Medicine; ATTEND Family Medicine
DX: A41.9 Sepsis, unspecified organism (principal); N12 Tubulo-interstitial nephritis, not specified as acute or chronic; G40.409 Other generalized epilepsy and epileptic syndromes, not intractable, without status epilepticus; R65.20 Severe sepsis without septic shock; F32.9 Major depressive disorder, single episode, unspecified; F17.200 Nicotine dependence, unspecified, uncomplicated; F41.9 Anxiety disorder, unspecified; G89.4 Chronic pain syndrome; H54.8 Legal blindness, as defined in USA; H55.00 Unspecified nystagmus
CPT/HCPCS: 36415; 71020; 76770; 80048; 80053; 81001; 81025; 83605; 83690; 85025; 86308; 87040; 87081; 87086; 87430; 96361; 96374; 96375; 99285

== ENCOUNTER 2017-05-11 14:59 | Emergency (ER) | payer OTHER ==
[2017-05-11] MEDS ORDERED: SODIUM CHLORIDE 0.9% 1,000 ML IV STA (15:23)
[2017-05-11] MEDS ORDERED: MORPHINE SULFATE 2 MG/ML SYRINGE IVP STA (15:23)
[2017-05-11] MEDS ORDERED: ONDANSETRON 4 MG/2 ML VIAL IVP STA (15:23)
--- NOTE | 2017-05-11 15:36 | ED ---
Abdominal Pain HPI - General Chief Complaint: Abdominal Pain Stated Complaint: abdominal pain/seizure Time Seen by Provider: 05/11/17 15:10 Source: patient, family Mode of arrival: wheelchair Limitations: no limitations - History of Present Illness Initial Comments: Patient is a 27-year-old female with extensive past medical history who presents to the emergency department as a walk-in for evaluation of abdominal pain. Patient's mother is currently admitted to our hospital in the intensive care unit. Patient was visiting her mother when she developed worsening abdominal pain decided to come to the emergency department. Patient does have a history of recurrent pancreatitis, she reports that the first episode of pancreatitis was caused by anti-epileptic medication she was on, however she has had 2 episodes of pancreatitis since that reason. Patient reports that last month she was treated for pyelonephritis but that she continues to experience subjective fevers, bilateral flank pain and dysuria makes her concerned that she may have recurrent and/or persistent pyelonephritis. - Related Data Home Medications Medication Instructions Recorded Confirmed oxyCODONE HCL 15 mg PO TID PRN 03/02/15 05/11/17 Morphine Sulfate ER [Ms Contin] 60 mg PO BID 07/10/16 05/11/17 ALPRAZolam [Xanax] 1 mg PO 5XD PRN 02/02/17 05/11/17 Topiramate [Topamax] 100 mg PO DAILY 02/02/17 05/11/17 Previous Rx's Medication Instructions Recorded Sennosides-Docusate Sodium 1 tab PO DAILY #30 tablet 05/11/17 [Senokot-S] Allergies Allergy/AdvReac Type Severity Reaction Status Date / Time ketorolac [From Toradol] Allergy Itching Verified 05/11/17 16:00 acetaminophen AdvReac Severe Liver & Verified 05/11/17 16:00 Kidney Failure amoxicillin AdvReac Abdominal Verified 05/11/17 16:00 Pain azithromycin AdvReac Abdominal Verified 05/11/17 16:00 Pain bupropion HCl AdvReac Seizure Verified 05/11/17 16:00 [From Wellbutrin] divalproex sodium AdvReac Abdominal Verified 05/11/17 16:00 [From Depakote] Pain lorazepam [From Ativan] AdvReac Hallucinati Verified 05/11/17 16:00 ons Review of Systems ROS Statement: Those systems with pertinent positive or pertinent negative responses have been documented in the HPI. ROS Other: All systems not noted in ROS Statement are negative. Constitutional: Reports: fever ENT: Denies: throat pain Respiratory: Denies: cough, dyspnea Cardiovascular: Denies: chest pain, palpitations Endocrine: Reports: fatigue Gastrointestinal: Reports: abdominal pain, nausea, vomiting, constipation Genitourinary: Reports: dysuria, abnormal menses (no menses in 8 years secondary to control implant - nexplanon) Skin: Denies: rash Neurological: Reports: headache (chronic migraines) Hematological/Lymphatic: Denies: easy bleeding, easy bruising Past Medical History Past Medical History: Blood Disorder, Seizure Disorder Additional Past Medical History / Comment(s): pancreatitis,anemia, eye disorder? had scar tissue removed in past; kidney and liver failure with dialysis 2010- resolved now. History of Any Multi-Drug Resistant Organisms: None Reported Past Surgical History: Ear Surgery Additional Past Surgical History / Comment(s): eye surgeries(scar tissue), tubes in ears, wisdom teeeth removed. Past Anesthesia/Blood Transfusion Reactions: No Reported Reaction Additional Past Anesthesia/Blood Transfusion Reaction / Comment(s): when previous intubate patient swelled up from medication Past Psychological History: Anxiety, Depression Smoking Status: Current every day smoker Past Alcohol Use History: None Reported Past Drug Use History: None Reported - Past Family History Mother Additional Family Medical History / Comment(s): total hysterectomy, cleaned out scar tissue in abdomen, endometriosis, herniated and bulging disc in back Father Additional Family Medical History / Comment(s): bleeding ulcers General Exam Limitations: no limitations General appearance: alert, other (appears uncomfortable) Head exam: Present: atraumatic, normocephalic, normal inspection Eye exam: Present: normal appearance, PERRL, EOMI, nystagmus. Absent: scleral icterus, conjunctival injection, periorbital swelling ENT exam: Present: normal exam, mucous membranes moist Neck exam: Present: normal inspection. Absent: tenderness, meningismus, lymphadenopathy Respiratory exam: Present: normal lung sounds bilaterally. Absent: respiratory distress, wheezes, rales, rhonchi, stridor Cardiovascular Exam: Present: regular rate, normal rhythm GI/Abdominal exam: Present: soft, tenderness, normal bowel sounds. Absent: distended, guarding, rebound, rigid Rectal exam: Present: deferred Extremities exam: Present: normal inspection, full ROM, normal capillary refill. Absent: tenderness, pedal edema, joint swelling, calf tenderness Back exam: Present: CVA tenderness (R), CVA tenderness (L) Neurological exam: Present: alert, oriented X3, CN II-XII intact Psychiatric exam: Present: depressed, anxious Skin exam: Present: warm, dry Course Vital Signs 05/11/17 05/11/17 05/11/17 15:02 16:13 16:34 Temperature 100.0 F H 99.5 F 98.6 F Pulse Rate 99 72 Respiratory 16 18 Rate Blood Pressure 119/83 104/75 O2 Sat by Pulse 100 100 Oximetry - Reevaluation(s) Reevaluation #1: Patient reevaluated, resting in bed. Results were discussed with the patient who expressed relief that she does not have evidence of a kidney infection or pancreatitis. Discussed with patient that she has evidence of fecal retention, likely related to being on narcotic pain medications. Patient does not currently take a stool softener with her narcotic pain meds. Advised patient she needs start doing so. Offered the patient suppositories and enema which she declined. Patient agreeable to taking by mouth treatment for constipation. 05/11/17 17:07 Medical Decision Making - Medical Decision Making Patient was seen and evaluated, vital signs were reviewed. Patient is afebrile, normal blood pressure, normal heart rate, normal respiratory rate Absent IV fluids were ordered Zofran was ordered for nausea Physical exam with bilateral lower abdominal pain Labs with no acute findings UA with no evidence of UTI Results discussed with patient who expresses relief, is agreeable to PO treatment for constipation and plan for discharge home Had long discussion with patient regarding need to take stool softener while taking opiate pain medication, patient reports she doesnt have any. Will prescribe. Patient declines suppository or enema - Lab Data Result diagrams: 05/11/17 15:30 05/11/17 15:30 Lab Results 05/11/17 05/11/17 05/11/17 Range/Units 15:30 15:30 15:30 WBC 3.9 (3.8-10.6) k/uL RBC 4.16 (3.80-5.40) m/uL Hgb 12.9 (11.4-16.0) gm/dL Hct 38.6 (34.0-46.0) % MCV 92.8 (80.0-100.0) fL MCH 31.0 (25.0-35.0) pg MCHC 33.4 (31.0-37.0) g/dL RDW 12.7 (11.5-15.5) % Plt Count 328 (150-450) k/uL Neutrophils % 38 % Lymphocytes % 40 % Monocytes % 8 % Eosinophils % 10 % Basophils % 1 % Neutrophils # 1.5 (1.3-7.7) k/uL Lymphocytes # 1.5 (1.0-4.8) k/uL Monocytes # 0.3 (0-1.0) k/uL Eosinophils # 0.4 (0-0.7) k/uL Basophils # 0.0 (0-0.2) k/uL Sodium 138 (137-145) mmol/L Potassium 4.4 (3.5-5.1) mmol/L Chloride 101 (98-107) mmol/L Carbon Dioxide 26 (22-30) mmol/L Anion Gap 11 mmol/L BUN 5 L (7-17) mg/dL Creatinine 0.60 (0.52-1.04) mg/dL Est GFR (MDRD) Af Amer >60 (>60 ml/min/1.73 sqM) Est GFR (MDRD) Non-Af >60 (>60 ml/min/1.73 sqM) Glucose 89 (74-99) mg/dL Plasma Lactic Acid Jimmy (0.7-2.0) mmol/L Calcium 9.9 (8.4-10.2) mg/dL Total Bilirubin 0.4 (0.2-1.3) mg/dL AST 26 (14-36) U/L ALT 35 (9-52) U/L Alkaline Phosphatase 59 (38-126) U/L Total Protein 7.5 (6.3-8.2) g/dL Albumin 4.7 (3.5-5.0) g/dL Amylase 70 (30-110) U/L Lipase 26 (23-300) U/L Urine Color Urine Appearance (Clear) Urine pH (5.0-8.0) Ur Specific [place] (1.001-1.035) Urine Protein (Negative) Urine Glucose (UA) (Negative) Urine Ketones (Negative) Urine Blood (Negative) Urine Nitrite (Negative) Urine Bilirubin (Negative) Urine Urobilinogen (<2.0) mg/dL Ur Leukocyte Esterase (Negative) Urine HCG, Qual Not Detected (Not Detectd) Urine Opiates Screen (NotDetected) Ur Oxycodone Screen (NotDetected) Urine Methadone Screen (NotDetected) Ur Propoxyphene Screen (NotDetected) Ur Barbiturates Screen (NotDetected) U Tricyclic Antidepress (NotDetected) Ur Phencyclidine Scrn (NotDetected) Ur Amphetamines Screen (NotDetected) U Methamphetamines Scrn (NotDetected) U Benzodiazepines Scrn (NotDetected) Urine Cocaine Screen (NotDetected) U Marijuana (THC) Screen (NotDetected) 05/11/17 05/11/17 Range/Units 15:30 15:30 WBC (3.8-10.6) k/uL RBC (3.80-5.40) m/uL Hgb (11.4-16.0) gm/dL Hct (34.0-46.0) % MCV (80.0-100.0) fL MCH (25.0-35.0) pg MCHC (31.0-37.0) g/dL RDW (11.5-15.5) % Plt Count (150-450) k/uL Neutrophils % % Lymphocytes % % Monocytes % % Eosinophils % % Basophils % % Neutrophils # (1.3-7.7) k/uL Lymphocytes # (1.0-4.8) k/uL Monocytes # (0-1.0) k/uL Eosinophils # (0-0.7) k/uL Basophils # (0-0.2) k/uL Sodium (137-145) mmol/L Potassium (3.5-5.1) mmol/L Chloride (98-107) mmol/L Carbon Dioxide (22-30) mmol/L Anion Gap mmol/L BUN (7-17) mg/dL Creatinine (0.52-1.04) mg/dL Est GFR (MDRD) Af Amer (>60 ml/min/1.73 sqM) Est GFR (MDRD) Non-Af (>60 ml/min/1.73 sqM) Glucose (74-99) mg/dL Plasma Lactic Acid Jimmy 1.1 (0.7-2.0) mmol/L Calcium (8.4-10.2) mg/dL Total Bilirubin (0.2-1.3) mg/dL AST (14-36) U/L ALT (9-52) U/L Alkaline Phosphatase (38-126) U/L Total Protein (6.3-8.2) g/dL Albumin (3.5-5.0) g/dL Amylase (30-110) U/L Lipase (23-300) U/L Urine Color Yellow Urine Appearance Clear (Clear) Urine pH 7.0 (5.0-8.0) Ur Specific [place] 1.009 (1.001-1.035) Urine Protein Negative (Negative) Urine Glucose (UA) Negative (Negative) Urine Ketones Negative (Negative) Urine Blood Negative (Negative) Urine Nitrite Negative (Negative) Urine Bilirubin Negative (Negative) Urine Urobilinogen <2.0 (<2.0) mg/dL Ur Leukocyte Esterase Negative (Negative) Urine HCG, Qual (Not Detectd) Urine Opiates Screen Detected H (NotDetected) Ur Oxycodone Screen Detected H (NotDetected) Urine Methadone Screen Not Detected (NotDetected) Ur Propoxyphene Screen Not Detected (NotDetected) Ur Barbiturates Screen Not Detected (NotDetected) U Tricyclic Antidepress Not Detected (NotDetected) Ur Phencyclidine Scrn Not Detected (NotDetected) Ur Amphetamines Screen Not Detected (NotDetected) U Methamphetamines Scrn Not Detected (NotDetected) U Benzodiazepines Scrn Detected H (NotDetected) Urine Cocaine Screen Not Detected (NotDetected) U Marijuana (THC) Screen Detected H (NotDetected) Disposition Clinical Impression: Narcotic bowel syndrome Disposition: HOME SELF-CARE Condition: Good Prescriptions: Sennosides-Docusate Sodium [Senokot-S] 1 tab PO DAILY #30 tablet Referrals: Francisco Javier Duvall MD [Primary Care Provider] - 1-2 days
[2017-05-11 15:47] LABS: Appearance,Urine Clear (Clear); Bilirubin,Urine Negative (Negative); Glucose,Urine (UA) Negative (Negative); Ketones,Urine Negative (Negative); Leukocyte Esterase,Urine Negative (Negative); Nitrite,Urine Negative (Negative); Protein,Urine Negative (Negative); Specific Gravity,Urine 1.009 (1.001-1.035); UA Billing (MACRO vs. MICRO) CHEM; Urobilinogen,Urine <2.0 mg/dL (<2.0)
[2017-05-11 15:48] LABS: Basophils % (A) 1 %; CHCM 32.4; Eosinophils # (A) 0.4 k/uL (0-0.7); Eosinophils % (A) 10 %; HCT 38.6 % (34.0-46.0); HDW 2.23; HGB 12.9 gm/dL (11.4-16.0); Luc # (Auto) 0.17; Luc % (Auto) 4; Lymphocytes # (A) 1.5 k/uL (1.0-4.8); Lymphocytes % (A) 40 %; MCHC 33.4 g/dL (31.0-37.0); MCV 92.8 fL (80.0-100.0); Mean Platelet Volume 6.6; Monocytes # (A) 0.3 k/uL (0-1.0); Monocytes % (A) 8 %; Neutrophils # (A) 1.5 k/uL (1.3-7.7); Neutrophils % (A) 38 %; RBC 4.16 m/uL (3.80-5.40); RDW 12.7 % (11.5-15.5); WBC 3.9 k/uL (3.8-10.6); WBC (Perox) 3.67
[2017-05-11 15:57] LABS: ALT 35 U/L (9-52); AST 26 U/L (14-36); Alkaline Phosphatase 59 U/L (38-126); Amylase 70 U/L (30-110); Anion Gap 11 mmol/L; Blood Urea Nitrogen 5 mg/dL (7-17); Calcium 9.9 mg/dL (8.4-10.2); Carbon Dioxide 26 mmol/L (22-30); Chloride 101 mmol/L (98-107); Glucose 89 mg/dL (74-99); Non-African American GFR(MDRD) >60 (>60 ml/min/1.73 sqM); Potassium 4.4 mmol/L (3.5-5.1); Sodium 138 mmol/L (137-145); Total Bilirubin 0.4 mg/dL (0.2-1.3); Total Protein 7.5 g/dL (6.3-8.2)
[2017-05-11] MEDS ORDERED: DICYCLOMINE 10 MG/ML 2 ML AMP IM STA (16:19)
[2017-05-11 16:34] VITALS: TEMP 98.6
--- NOTE | 2017-05-11 16:56 | XR ---
EXAMINATION TYPE: XR KUB DATE OF EXAM: 05/11/2017 COMPARISON: 07/10/2016 INDICATION: Pain TECHNIQUE: Single view abdomen upright FINDINGS: There is a normal bowel gas pattern. Moderate to marked amount of fecal debris is through the descend ing colon and sigmoid colon. Some fecal debris is in the ascending colon region. Psoas margins are normal. No organomegaly is present. No suspicious air-fluid levels or differential air-fluid levels are present. No free air is present. IMPRESSION: 1. Moderate to marked fecal retention
[2017-05-11] MEDS: MAGNESIUM CITRATE 296 ML BOTTLE PO ONE ×2 (17:22→17:23)
[2017-05-11 17:32] VITALS: BP 122/64; PULSE 79; RESP 16
== END 2017-05-11 17:38 | disposition home or self-care (01) ==
LOC: EC 14:59
DX: K59.09 Other constipation (principal); T40.605A Adverse effect of unspecified narcotics, initial encounter; G43.909 Migraine, unspecified, not intractable, without status migrainosus; G40.909 Epilepsy, unspecified, not intractable, without status epilepticus; F17.200 Nicotine dependence, unspecified, uncomplicated; Z88.0 Allergy status to penicillin; Z88.1 Allergy status to other antibiotic agents; Z88.5 Allergy status to narcotic agent; Z88.8 Allergy status to other drugs, medicaments and biological substances; Z79.891 Long term (current) use of opiate analgesic; Z79.899 Other long term (current) drug therapy
CPT/HCPCS: 99284; 96374; 96361 ×2; 96372; 36415; 80053; 82150; 83605; 83690; 85025; 81003; 81025; 80306; 74000; J0500; J2405

== ENCOUNTER 2017-05-14 14:47 | Emergency (ER) | payer OTHER ==
[2017-05-14] MEDS ORDERED: SODIUM CHLORIDE 0.9% 1,000 ML IV STA ×2 (15:20)
[2017-05-14 16:07] LABS: Amorphous Sediment,Urine Few /hpf; Appearance,Urine Turbid (Clear); Basophils % (A) 0 %; Bilirubin,Urine 1+ (Negative); CH 31.9; CHCM 34.8; Eosinophils % (A) 1 %; Glucose,Urine (UA) Negative (Negative); HCT 38.2 % (34.0-46.0); HDW 2.27; HGB 12.8 gm/dL (11.4-16.0); Ketones,Urine 3+ (Negative); Leukocyte Esterase,Urine Trace (Negative); Luc # (Auto) 0.11; Luc % (Auto) 2; Lymphocytes # (A) 0.8 k/uL (1.0-4.8); Lymphocytes % (A) 12 %; MCH 30.9 pg (25.0-35.0); MCHC 33.6 g/dL (31.0-37.0); MCV 92.1 fL (80.0-100.0); Mean Platelet Volume 9.4; Monocytes # (A) 0.5 k/uL (0-1.0); Monocytes % (A) 7 %; Mucus,Urine Many /hpf; Neutrophils # (A) 4.9 k/uL (1.3-7.7); Neutrophils % (A) 78 %; Nitrite,Urine Negative (Negative); Particle Count 42352; Protein,Urine 1+ (Negative); RBC 4.15 m/uL (3.80-5.40); RBC,Urine 3 /hpf (0-5); RDW 13.8 % (11.5-15.5); Specific Gravity,Urine 1.029 (1.001-1.035); Squamous Epithelial Cell,Urine 6 /hpf (0-4); UA Billing (MACRO vs. MICRO) MICRO; WBC 6.4 k/uL (3.8-10.6); WBC,Urine 41 /hpf (0-5)
[2017-05-14 16:13] LABS: ALT 13 U/L (9-52); Alkaline Phosphatase 58 U/L (38-126); Anion Gap 13 mmol/L; Blood Urea Nitrogen 17 mg/dL (7-17); Calcium 9.8 mg/dL (8.4-10.2); Carbon Dioxide 19 mmol/L (22-30); Chloride 111 mmol/L (98-107); Glucose 103 mg/dL (74-99); Non-African American GFR(MDRD) >60 (>60 ml/min/1.73 sqM); Sodium 143 mmol/L (137-145); Total Bilirubin 1.2 mg/dL (0.2-1.3); Total Protein 8.4 g/dL (6.3-8.2)
--- NOTE | 2017-05-14 16:13 | ED ---
Seizure HPI - General Chief Complaint: Seizure Stated Complaint: seizure/confusion/syncope Time Seen by Provider: 05/14/17 15:02 Source: patient, RN notes reviewed, old records reviewed Mode of arrival: ambulatory Limitations: no limitations - History of Present Illness Initial Comments: 27-year-old feel presents the emergency department with seizure like episode earlier today. Patient has an extensive past medical history. Patient reports that she has a known history of seizure disorder. She states that she had multiple seizures this morning. She states she's been forgetting to take her seizure medication but she does take her pain medication. Patient states that she specific Topamax and has not been taking over the past 3 days. Patient relates that she's had a constant tremor however this is patient's baseline. Patient states that she is not sure if she hit her head when she was having any seizures. Denies any associated fever or chills. Denies any other symptoms. She reports she is under a lot of stress with her family at this time as her mother is currently in the ICU. Patient denies any recent fever, chills, shortness of breath, chest pain, back pain, abdominal pain, nausea vomiting, dysuria or hematuria, constipation or diarrhea, headaches or visual changes, or any other current symptoms - Related Data Home Medications Medication Instructions Recorded Confirmed oxyCODONE HCL 15 mg PO TID PRN 03/02/15 05/14/17 Morphine Sulfate ER [Ms Contin] 60 mg PO BID 07/10/16 05/14/17 ALPRAZolam [Xanax] 1 mg PO 5XD PRN 02/02/17 05/14/17 Topiramate [Topamax] 100 mg PO DAILY 02/02/17 05/14/17 Previous Rx's Medication Instructions Recorded Sennosides-Docusate Sodium 1 tab PO DAILY #30 tablet 05/11/17 [Senokot-S] Nitrofurantoin Monohyd/M-Cryst 100 mg PO Q12HR #14 cap 05/14/17 [Macrobid] Allergies Allergy/AdvReac Type Severity Reaction Status Date / Time ketorolac [From Toradol] Allergy Itching Verified 05/14/17 15:35 acetaminophen AdvReac Severe Liver & Verified 05/14/17 15:35 Kidney Failure amoxicillin AdvReac Abdominal Verified 05/14/17 15:35 Pain azithromycin AdvReac Abdominal Verified 05/14/17 15:35 Pain bupropion HCl AdvReac Seizure Verified 05/14/17 15:35 [From Wellbutrin] divalproex sodium AdvReac Abdominal Verified 05/14/17 15:35 [From Depakote] Pain lorazepam [From Ativan] AdvReac Hallucinati Verified 05/14/17 15:35 ons Review of Systems ROS Statement: Those systems with pertinent positive or pertinent negative responses have been documented in the HPI. ROS Other: All systems not noted in ROS Statement are negative. Past Medical History Past Medical History: Blood Disorder, Seizure Disorder Additional Past Medical History / Comment(s): pancreatitis,anemia, eye disorder? had scar tissue removed in past; kidney and liver failure with dialysis 2010- resolved now. History of Any Multi-Drug Resistant Organisms: None Reported Past Surgical History: Ear Surgery Additional Past Surgical History / Comment(s): eye surgeries(scar tissue), tubes in ears, wisdom teeeth removed. Past Anesthesia/Blood Transfusion Reactions: No Reported Reaction Additional Past Anesthesia/Blood Transfusion Reaction / Comment(s): when previous intubate patient swelled up from medication Past Psychological History: Anxiety, Depression Smoking Status: Current every day smoker Past Alcohol Use History: None Reported Past Drug Use History: None Reported - Past Family History Mother Additional Family Medical History / Comment(s): total hysterectomy, cleaned out scar tissue in abdomen, endometriosis, herniated and bulging disc in back Father Additional Family Medical History / Comment(s): bleeding ulcers General Exam Limitations: no limitations General appearance: alert, in no apparent distress Head exam: Present: atraumatic, normocephalic, normal inspection Eye exam: Present: normal appearance, PERRL, EOMI, nystagmus (Mejia has consistent nystagmus patient reports that this is chronic.). Absent: scleral icterus, conjunctival injection, periorbital swelling ENT exam: Present: normal exam, mucous membranes moist Neck exam: Present: normal inspection. Absent: tenderness, meningismus, lymphadenopathy Respiratory exam: Present: normal lung sounds bilaterally. Absent: respiratory distress, wheezes, rales, rhonchi, stridor Cardiovascular Exam: Present: regular rate, normal rhythm, normal heart sounds. Absent: systolic murmur, diastolic murmur, rubs, gallop, clicks GI/Abdominal exam: Present: soft, normal bowel sounds. Absent: distended, tenderness, guarding, rebound, rigid Extremities exam: Present: normal inspection, full ROM, normal capillary refill. Absent: tenderness, pedal edema, joint swelling, calf tenderness Back exam: Present: normal inspection Neurological exam: Present: alert, oriented X3, CN II-XII intact, other (Vision has a baseline essential tremor. Patient also has evidence of nystatin mess. Patient reports that this is consistent with how she is always been.) Psychiatric exam: Present: normal affect, normal mood Skin exam: Present: warm, dry, intact, normal color. Absent: rash Course Vital Signs 05/14/17 05/14/17 05/14/17 14:52 16:52 17:00 Temperature 99.1 F Pulse Rate 79 76 62 Respiratory 18 18 18 Rate Blood Pressure 118/71 129/64 O2 Sat by Pulse 100 100 Oximetry 05/14/17 18:39 Temperature 99.4 F Pulse Rate 75 Respiratory 17 Rate Blood Pressure 124/57 O2 Sat by Pulse 99 Oximetry Medical Decision Making - Medical Decision Making 27-year-old female with a seizure history. Patient reports she has not been taking her seizure medication for the past 2 days. Labwork was reviewed, negative for any significant. Computed tomography scan shows evidence of any acute abnormalities. Urinalysis is positive for some signs of infection. Culture obtained. Patient placed on Macrobid. - Lab Data Result diagrams: 05/14/17 15:48 05/14/17 15:48 Lab Results 05/14/17 05/14/17 05/14/17 Range/Units 15:48 15:48 15:48 WBC 6.4 (3.8-10.6) k/uL RBC 4.15 (3.80-5.40) m/uL Hgb 12.8 (11.4-16.0) gm/dL Hct 38.2 (34.0-46.0) % MCV 92.1 (80.0-100.0) fL MCH 30.9 (25.0-35.0) pg MCHC 33.6 (31.0-37.0) g/dL RDW 13.8 (11.5-15.5) % Plt Count 122 L D (150-450) k/uL Neutrophils % 78 % Lymphocytes % 12 % Monocytes % 7 % Eosinophils % 1 % Basophils % 0 % Neutrophils # 4.9 (1.3-7.7) k/uL Lymphocytes # 0.8 L (1.0-4.8) k/uL Monocytes # 0.5 (0-1.0) k/uL Eosinophils # 0.0 (0-0.7) k/uL Basophils # 0.0 (0-0.2) k/uL Sodium 143 (137-145) mmol/L Potassium 5.1 (3.5-5.1) mmol/L Chloride 111 H (98-107) mmol/L Carbon Dioxide 19 L (22-30) mmol/L Anion Gap 13 mmol/L BUN 17 (7-17) mg/dL Creatinine 0.56 (0.52-1.04) mg/dL Est GFR (MDRD) Af Amer >60 (>60 ml/min/1.73 sqM) Est GFR (MDRD) Non-Af >60 (>60 ml/min/1.73 sqM) Glucose 103 H (74-99) mg/dL Calcium 9.8 (8.4-10.2) mg/dL Total Bilirubin 1.2 (0.2-1.3) mg/dL AST 40 H (14-36) U/L ALT 13 (9-52) U/L Alkaline Phosphatase 58 (38-126) U/L Total Protein 8.4 H (6.3-8.2) g/dL Albumin 5.0 (3.5-5.0) g/dL Urine Color Yellow Urine Appearance Turbid H (Clear) Urine pH 6.0 (5.0-8.0) Ur Specific [place] 1.029 (1.001-1.035) Urine Protein 1+ H (Negative) Urine Glucose (UA) Negative (Negative) Urine Ketones 3+ H (Negative) Urine Blood Negative (Negative) Urine Nitrite Negative (Negative) Urine Bilirubin 1+ H (Negative) Urine Urobilinogen 2.0 (<2.0) mg/dL Ur Leukocyte Esterase Trace H (Negative) Urine RBC 3 (0-5) /hpf Urine WBC 41 H (0-5) /hpf Ur Squamous Epith Cells 6 H (0-4) /hpf Amorphous Sediment Few H (None) /hpf Hyaline Casts 111 H (0-2) /lpf Urine Mucus Many H (None) /hpf Urine Opiates Screen Not Detected (NotDetected) Ur Oxycodone Screen Detected H (NotDetected) Urine Methadone Screen Not Detected (NotDetected) Ur Propoxyphene Screen Not Detected (NotDetected) Ur Barbiturates Screen Not Detected (NotDetected) U Tricyclic Antidepress Not Detected (NotDetected) Ur Phencyclidine Scrn Not Detected (NotDetected) Ur Amphetamines Screen Not Detected (NotDetected) U Methamphetamines Scrn Not Detected (NotDetected) U Benzodiazepines Scrn Detected H (NotDetected) Urine Cocaine Screen Not Detected (NotDetected) U Marijuana (THC) Screen Detected H (NotDetected) 05/14/17 16:13 EKG shows sinus rhythm with sinus arrhythmia showing short SD. Endocrine 66 bpm. SD interval 110 ms. QRS duration 68 ms. QT QTc is 398/417 ms. No evidence of ST elevation or T-wave inversion. - Radiology Data Radiology results: report reviewed CT is negative for any acute process. No acute intracranial hemorrhage and lashes seen. 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 No significant change from prior studies. Disposition Clinical Impression: Seizure disorder, Urinary tract infection Disposition: HOME SELF-CARE Condition: Stable Instructions: Recurrent Seizures in Adults (ED) Additional Instructions: Patient advised that it is very important to take her seizure medication. Patient needs to follow-up with your neurologist. Follow return to the emergency department if any alarming signs or symptoms occur. Take antibiotics as prescribed for urinary tract infection. Prescriptions: Nitrofurantoin Monohyd/M-Cryst [Macrobid] 100 mg PO Q12HR #14 cap Referrals: Francisco Javier Duvall MD [Primary Care Provider] - 1-2 days Time of Disposition: 17:30
[2017-05-14 16:21] LABS: AST 40 U/L (14-36); Potassium 5.1 mmol/L (3.5-5.1)
--- NOTE | 2017-05-14 16:24 | CT ---
EXAMINATION TYPE: CT brain wo con DATE OF EXAM: 05/14/2017 COMPARISON: CT brain January 04, 2017. HISTORY: Seizures and weakness. CT DLP: 1017.9 mGycm. Automated Exposure Control for Dose Reduction was Utilized. TECHNIQUE: CT scan of the head is performed without contrast. FINDINGS: There is no acute intracranial hemorrhage, mass effect, or midline shift identified. The ventricles and sulci are within normal limits in size. Old area of encephalomalacia right frontal l obe near axial image 27 is redemonstrated. The globes are intact and the visualized sinuses are clear . IMPRESSION: No acute intracranial hemorrhage or midline shift is seen. Old infarct right frontal lob e redemonstrated. No significant change from prior study is seen.
[2017-05-14] MEDS ORDERED: TOPIRAMATE 100 MG TAB PO STA (17:16)
[2017-05-14 18:40] VITALS: BP 124/57; PULSE 75; RESP 17; TEMP 99.4
== END 2017-05-14 19:35 | disposition home or self-care (01) ==
LOC: EC 14:47
DX: G40.909 Epilepsy, unspecified, not intractable, without status epilepticus (principal); N39.0 Urinary tract infection, site not specified; F17.200 Nicotine dependence, unspecified, uncomplicated; Z79.891 Long term (current) use of opiate analgesic; Z88.6 Allergy status to analgesic agent; Z88.0 Allergy status to penicillin; Z88.1 Allergy status to other antibiotic agents; Z88.8 Allergy status to other drugs, medicaments and biological substances; Z79.899 Other long term (current) drug therapy
CPT/HCPCS: 36415; 70450; 80053; 80306; 81001; 85025; 93005; 96360; 96361; 99285

== ENCOUNTER 2017-05-17 17:52 | Emergency (ER) | payer OTHER ==
[2017-05-17] MEDS ORDERED: SODIUM CHLORIDE 0.9% 500 ML IV ONE (18:13)
[2017-05-17] MEDS ORDERED: IBUPROFEN 800 MG TAB PO STA (18:13)
[2017-05-17 18:43] LABS: Basophils # (A) 0.1 k/uL (0-0.2); Basophils % (A) 2 %; CH 31.5; CHCM 34.1; Eosinophils % (A) 0 %; HCT 38.7 % (34.0-46.0); HDW 2.37; HGB 12.7 gm/dL (11.4-16.0); Luc % (Auto) 3; Lymphocytes % (A) 30 %; MCH 30.4 pg (25.0-35.0); MCHC 32.8 g/dL (31.0-37.0); MCV 92.7 fL (80.0-100.0); Mean Platelet Volume 7.6; Monocytes # (A) 0.4 k/uL (0-1.0); Monocytes % (A) 7 %; Neutrophils % (A) 59 %; RBC 4.17 m/uL (3.80-5.40); RDW 13.5 % (11.5-15.5); WBC 6.8 k/uL (3.8-10.6)
[2017-05-17 18:50] LABS: ALT 25 U/L (9-52); AST 21 U/L (14-36); Alkaline Phosphatase 48 U/L (38-126); Amorphous Sediment,Urine Occasional /hpf; Anion Gap 13 mmol/L; Appearance,Urine Turbid (Clear); Bacteria,Urine Many /hpf; Bilirubin,Urine Negative (Negative); Blood Urea Nitrogen 13 mg/dL (7-17); Calcium 9.3 mg/dL (8.4-10.2); Carbon Dioxide 13 mmol/L (22-30); Chloride 117 mmol/L (98-107); Glucose 95 mg/dL (74-99); Glucose,Urine (UA) Negative (Negative); Ketones,Urine 1+ (Negative); Leukocyte Esterase,Urine Negative (Negative); Mucus,Urine Many /hpf; Nitrite,Urine Negative (Negative); Non-African American GFR(MDRD) >60 (>60 ml/min/1.73 sqM); PH, Urine 7.5 (5.0-8.0); Particle Count 28105; Potassium 3.8 mmol/L (3.5-5.1); Protein,Urine Trace (Negative); Sodium 143 mmol/L (137-145); Specific Gravity,Urine 1.021 (1.001-1.035); Squamous Epithelial Cell,Urine 3 /hpf (0-4); Total Bilirubin 0.8 mg/dL (0.2-1.3); Total Protein 7.2 g/dL (6.3-8.2); UA Billing (MACRO vs. MICRO) MICRO
--- NOTE | 2017-05-17 18:57 | XR ---
EXAMINATION TYPE: XR chest 2V DATE OF EXAM: 05/17/2017 COMPARISON: 02/02/2017 HISTORY: 27-year-old female with pain TECHNIQUE: AP and lateral views FINDINGS: The cardiomediastinal silhouette, aorta, and pulmonary vasculature are within normal limits. Lungs an d pleural spaces are clear. IMPRESSION: No acute cardiopulmonary process.
[2017-05-17 19:10] VITALS: BP 109/75; PULSE 79; RESP 18; TEMP 99.3
--- NOTE | 2017-05-17 19:15 | ED ---
Seizure HPI - General Chief Complaint: Seizure Stated Complaint: Seizure Time Seen by Provider: 05/17/17 18:04 Source: patient, family, EMS, RN notes reviewed Mode of arrival: EMS Limitations: no limitations - History of Present Illness Initial Comments: This a 27-year-old female presents emergency Department with chief complaint of seizure. Patient has a history of seizure disorder. She states that she was not taking her medications. Takes ago when she came in but states that over the last few days she restarted taking her meds. Patient states that she was at home started feeling off and felt that she can have a seizure and she woke up on the floor. Patient was at home with brother. Patient states she has had increased stress today because her mother just . Patient denies any homicidal or suicidal thoughts. Patient states that she is currently being treated for urinary tract infection. Patient has low-grade temp of 100.9 here. Patient does complain of some URI symptoms. Denies any chest pain or shortness breath. Denies any neck pain or neck stiffness. - Related Data Home Medications Medication Instructions Recorded Confirmed oxyCODONE HCL 15 mg PO TID PRN 03/02/15 05/17/17 Morphine Sulfate ER [Ms Contin] 60 mg PO BID 07/10/16 05/17/17 ALPRAZolam [Xanax] 1 mg PO 5XD PRN 02/02/17 05/17/17 Topiramate [Topamax] 200 mg PO DAILY 02/02/17 05/17/17 Topiramate [Topamax] 100 mg PO HS 05/17/17 05/17/17 Previous Rx's Medication Instructions Recorded Sennosides-Docusate Sodium 1 tab PO DAILY #30 tablet 05/11/17 [Senokot-S] Nitrofurantoin Monohyd/M-Cryst 100 mg PO Q12HR #14 cap 05/14/17 [Macrobid] Allergies Allergy/AdvReac Type Severity Reaction Status Date / Time ketorolac [From Toradol] Allergy Itching Verified 05/17/17 18:02 acetaminophen AdvReac Severe Liver & Verified 05/17/17 18:02 Kidney Failure amoxicillin AdvReac Abdominal Verified 05/17/17 18:02 Pain azithromycin AdvReac Abdominal Verified 05/17/17 18:02 Pain bupropion HCl AdvReac Seizure Verified 05/17/17 18:02 [From Wellbutrin] divalproex sodium AdvReac Abdominal Verified 05/17/17 18:02 [From Depakote] Pain lorazepam [From Ativan] AdvReac Hallucinati Verified 05/17/17 18:02 ons Review of Systems ROS Statement: Those systems with pertinent positive or pertinent negative responses have been documented in the HPI. ROS Other: All systems not noted in ROS Statement are negative. Past Medical History Past Medical History: Blood Disorder, Seizure Disorder Additional Past Medical History / Comment(s): pancreatitis,anemia, eye disorder? had scar tissue removed in past; kidney and liver failure with dialysis 2010- resolved now. History of Any Multi-Drug Resistant Organisms: None Reported Past Surgical History: Ear Surgery Additional Past Surgical History / Comment(s): eye surgeries(scar tissue), tubes in ears, wisdom teeeth removed. Past Anesthesia/Blood Transfusion Reactions: No Reported Reaction Additional Past Anesthesia/Blood Transfusion Reaction / Comment(s): when previous intubate patient swelled up from medication Past Psychological History: Anxiety, Depression Smoking Status: Current every day smoker Past Alcohol Use History: None Reported Past Drug Use History: None Reported - Past Family History Mother Additional Family Medical History / Comment(s): total hysterectomy, cleaned out scar tissue in abdomen, endometriosis, herniated and bulging disc in back Father Additional Family Medical History / Comment(s): bleeding ulcers General Exam Limitations: no limitations General appearance: alert, in no apparent distress Head exam: Present: atraumatic, normocephalic, normal inspection Eye exam: Present: normal appearance, PERRL, EOMI. Absent: scleral icterus, conjunctival injection, periorbital swelling ENT exam: Present: normal exam, normal oropharynx, mucous membranes moist, TM's normal bilaterally Neck exam: Present: normal inspection, full ROM. Absent: tenderness, meningismus, lymphadenopathy Respiratory exam: Present: normal lung sounds bilaterally. Absent: respiratory distress, wheezes, rales, rhonchi, stridor Cardiovascular Exam: Present: regular rate, normal rhythm, normal heart sounds. Absent: systolic murmur, diastolic murmur, rubs, gallop, clicks GI/Abdominal exam: Present: soft, normal bowel sounds. Absent: distended, tenderness, guarding, rebound, rigid Neurological exam: Present: alert, oriented X3, CN II-XII intact Skin exam: Present: warm, dry, intact, normal color. Absent: rash Course Vital Signs 05/17/17 05/17/17 17:55 19:09 Temperature 100.9 F H 99.3 F Pulse Rate 70 79 Respiratory 17 18 Rate Blood Pressure 105/65 109/75 O2 Sat by Pulse 100 100 Oximetry Medical Decision Making - Medical Decision Making 27-year-old female presented for seizure. It is plan. Patient most likely had a seizure as her bicarbonate is low at this time. Patient has no systemic signs of her infection including no leukocytosis chest x-ray shows no acute abnormality urinalysis is clear this time. Patient's lactic acid is within normal limits. Patient will continue antibiotics as directed. Patient has no meningismus. Patient will follow up with PCP tomorrow and return parameters were discussed. - Lab Data Result diagrams: 05/17/17 18:30 05/17/17 18:30 Lab Results 05/17/17 05/17/17 05/17/17 Range/Units 18:30 18:30 18:30 WBC 6.8 (3.8-10.6) k/uL RBC 4.17 (3.80-5.40) m/uL Hgb 12.7 (11.4-16.0) gm/dL Hct 38.7 (34.0-46.0) % MCV 92.7 (80.0-100.0) fL MCH 30.4 (25.0-35.0) pg MCHC 32.8 (31.0-37.0) g/dL RDW 13.5 (11.5-15.5) % Plt Count 360 D (150-450) k/uL Neutrophils % 59 % Lymphocytes % 30 % Monocytes % 7 % Eosinophils % 0 % Basophils % 2 % Neutrophils # 4.0 (1.3-7.7) k/uL Lymphocytes # 2.0 (1.0-4.8) k/uL Monocytes # 0.4 (0-1.0) k/uL Eosinophils # 0.0 (0-0.7) k/uL Basophils # 0.1 (0-0.2) k/uL Sodium 143 (137-145) mmol/L Potassium 3.8 (3.5-5.1) mmol/L Chloride 117 H (98-107) mmol/L Carbon Dioxide 13 L (22-30) mmol/L Anion Gap 13 mmol/L BUN 13 (7-17) mg/dL Creatinine 0.50 L (0.52-1.04) mg/dL Est GFR (MDRD) Af Amer >60 (>60 ml/min/1.73 sqM) Est GFR (MDRD) Non-Af >60 (>60 ml/min/1.73 sqM) Glucose 95 (74-99) mg/dL Plasma Lactic Acid Jimmy 1.1 (0.7-2.0) mmol/L Calcium 9.3 (8.4-10.2) mg/dL Total Bilirubin 0.8 (0.2-1.3) mg/dL AST 21 (14-36) U/L ALT 25 (9-52) U/L Alkaline Phosphatase 48 (38-126) U/L Total Protein 7.2 (6.3-8.2) g/dL Albumin 4.3 (3.5-5.0) g/dL Urine Color Urine Appearance (Clear) Urine pH (5.0-8.0) Ur Specific [place] (1.001-1.035) Urine Protein (Negative) Urine Glucose (UA) (Negative) Urine Ketones (Negative) Urine Blood (Negative) Urine Nitrite (Negative) Urine Bilirubin (Negative) Urine Urobilinogen (<2.0) mg/dL Ur Leukocyte Esterase (Negative) Ur Squamous Epith Cells (0-4) /hpf Amorphous Sediment (None) /hpf Urine Bacteria (None) /hpf Urine Mucus (None) /hpf Urine Opiates Screen (NotDetected) Ur Oxycodone Screen (NotDetected) Urine Methadone Screen (NotDetected) Ur Propoxyphene Screen (NotDetected) Ur Barbiturates Screen (NotDetected) U Tricyclic Antidepress (NotDetected) Ur Phencyclidine Scrn (NotDetected) Ur Amphetamines Screen (NotDetected) U Methamphetamines Scrn (NotDetected) U Benzodiazepines Scrn (NotDetected) Urine Cocaine Screen (NotDetected) U Marijuana (THC) Screen (NotDetected) 05/17/17 05/17/17 Range/Units 18:30 18:30 WBC (3.8-10.6) k/uL RBC (3.80-5.40) m/uL Hgb (11.4-16.0) gm/dL Hct (34.0-46.0) % MCV (80.0-100.0) fL MCH (25.0-35.0) pg MCHC (31.0-37.0) g/dL RDW (11.5-15.5) % Plt Count (150-450) k/uL Neutrophils % % Lymphocytes % % Monocytes % % Eosinophils % % Basophils % % Neutrophils # (1.3-7.7) k/uL Lymphocytes # (1.0-4.8) k/uL Monocytes # (0-1.0) k/uL Eosinophils # (0-0.7) k/uL Basophils # (0-0.2) k/uL Sodium (137-145) mmol/L Potassium (3.5-5.1) mmol/L Chloride (98-107) mmol/L Carbon Dioxide (22-30) mmol/L Anion Gap mmol/L BUN (7-17) mg/dL Creatinine (0.52-1.04) mg/dL Est GFR (MDRD) Af Amer (>60 ml/min/1.73 sqM) Est GFR (MDRD) Non-Af (>60 ml/min/1.73 sqM) Glucose (74-99) mg/dL Plasma Lactic Acid Jimmy (0.7-2.0) mmol/L Calcium (8.4-10.2) mg/dL Total Bilirubin (0.2-1.3) mg/dL AST (14-36) U/L ALT (9-52) U/L Alkaline Phosphatase (38-126) U/L Total Protein (6.3-8.2) g/dL Albumin (3.5-5.0) g/dL Urine Color [place] Urine Appearance Turbid H (Clear) Urine pH 7.5 (5.0-8.0) Ur Specific [place] 1.021 (1.001-1.035) Urine Protein Trace H (Negative) Urine Glucose (UA) Negative (Negative) Urine Ketones 1+ H (Negative) Urine Blood Negative (Negative) Urine Nitrite Negative (Negative) Urine Bilirubin Negative (Negative) Urine Urobilinogen 3.0 (<2.0) mg/dL Ur Leukocyte Esterase Negative (Negative) Ur Squamous Epith Cells 3 (0-4) /hpf Amorphous Sediment Occasional H (None) /hpf Urine Bacteria Many H (None) /hpf Urine Mucus Many H (None) /hpf Urine Opiates Screen Detected H (NotDetected) Ur Oxycodone Screen Detected H (NotDetected) Urine Methadone Screen Not Detected (NotDetected) Ur Propoxyphene Screen Not Detected (NotDetected) Ur Barbiturates Screen Not Detected (NotDetected) U Tricyclic Antidepress Not Detected (NotDetected) Ur Phencyclidine Scrn Not Detected (NotDetected) Ur Amphetamines Screen Not Detected (NotDetected) U Methamphetamines Scrn Not Detected (NotDetected) U Benzodiazepines Scrn Detected H (NotDetected) Urine Cocaine Screen Not Detected (NotDetected) U Marijuana (THC) Screen Detected H (NotDetected) Disposition Clinical Impression: Generalized seizure Disposition: HOME SELF-CARE Condition: Stable Instructions: Recurrent Seizures in Adults (ED) Additional Instructions: Please return to the Emergency Department if symptoms worsen or any other concerns. Referrals: Francisco Javier Duvall MD [Primary Care Provider] - 1-2 days Lilly Banuelos MD [STAFF PHYSICIAN] - 1-2 days Time of Disposition: 19:15
== END 2017-05-17 19:40 | disposition home or self-care (01) ==
LOC: EC 17:52
DX: R56.9 Unspecified convulsions (principal); F32.9 Major depressive disorder, single episode, unspecified; F41.9 Anxiety disorder, unspecified; F17.200 Nicotine dependence, unspecified, uncomplicated; Z79.891 Long term (current) use of opiate analgesic; Z79.899 Other long term (current) drug therapy; Z88.0 Allergy status to penicillin; Z88.1 Allergy status to other antibiotic agents; Z88.6 Allergy status to analgesic agent; Z88.8 Allergy status to other drugs, medicaments and biological substances
CPT/HCPCS: 36415; 71020; 80053; 80306; 81001; 83605; 85025; 87040; 87086; 96360; 99284

== ENCOUNTER 2017-05-27 19:12 | Emergency (ER) | payer OTHER ==
[2017-05-27] MEDS ORDERED: LORazepam 1 MG TAB PO STA (20:26)
[2017-05-27] MEDS ORDERED: KETOROLAC 60 MG/2 ML VIAL IM STA (20:26)
[2017-05-27] MEDS ORDERED: ONDANSETRON ODT 4 MG TAB PO STA (20:27)
--- NOTE | 2017-05-27 20:35 | ED ---
General Adult HPI - General Chief complaint: Weakness Stated complaint: Body Tingling Time Seen by Provider: 05/27/17 19:30 Source: patient, family, RN notes reviewed Mode of arrival: wheelchair Limitations: no limitations - History of Present Illness Initial comments: This is a 27-year-old female presents to the emergency department with a past medical history for seizures. Patient states she has been off her OxyContin and morphine for a week and she is having a tingling sensation throughout her body she thinks it's withdrawal symptoms. Recent states his been no nausea or vomiting. Patient states she has not eaten much because she doesn't feel like eating because she has been depressed because her mother 2 weeks ago. Patient states she is mildly nauseated but has not vomited or had any diarrhea. Patient denies any abdominal pain. Patient states she has a mild headache she denies any numbness or weakness. Patient denies lightheadedness dizziness per patient denies any chest pain difficult breathing or shortness of breath. - Related Data Home Medications Medication Instructions Recorded Confirmed ALPRAZolam [Xanax] 1 mg PO 5XD PRN 02/02/17 05/27/17 Topiramate [Topamax] 200 mg PO QAM 02/02/17 05/27/17 Topiramate [Topamax] 100 mg PO HS 05/17/17 05/27/17 Sucralfate [Carafate] 1 gm PO [id number] 05/27/17 05/27/17 Previous Rx's Medication Instructions Recorded Ondansetron Odt [Zofran Odt] 4 mg PO Q8HR PRN #10 05/27/17 Allergies Allergy/AdvReac Type Severity Reaction Status Date / Time acetaminophen AdvReac Severe Liver & Verified 05/27/17 20:03 Kidney Failure amoxicillin AdvReac Abdominal Verified 05/27/17 20:03 Pain azithromycin AdvReac Abdominal Verified 05/27/17 20:03 Pain bupropion HCl AdvReac Seizure Verified 05/27/17 20:03 [From Wellbutrin] divalproex sodium AdvReac Abdominal Verified 05/27/17 20:03 [From Depakote] Pain lorazepam [From Ativan] AdvReac Hallucinati Verified 05/27/17 20:03 ons Review of Systems ROS Statement: Those systems with pertinent positive or pertinent negative responses have been documented in the HPI. ROS Other: All systems not noted in ROS Statement are negative. Past Medical History Past Medical History: Blood Disorder, Seizure Disorder Additional Past Medical History / Comment(s): pancreatitis,anemia, eye disorder? had scar tissue removed in past; kidney and liver failure with dialysis 2010- resolved now. History of Any Multi-Drug Resistant Organisms: None Reported Past Surgical History: Ear Surgery Additional Past Surgical History / Comment(s): eye surgeries(scar tissue), tubes in ears, wisdom teeeth removed. Past Anesthesia/Blood Transfusion Reactions: No Reported Reaction Additional Past Anesthesia/Blood Transfusion Reaction / Comment(s): when previous intubate patient swelled up from medication Past Psychological History: Anxiety, Depression Smoking Status: Current every day smoker Past Alcohol Use History: None Reported Past Drug Use History: None Reported - Past Family History Mother Additional Family Medical History / Comment(s): total hysterectomy, cleaned out scar tissue in abdomen, endometriosis, herniated and bulging disc in back Father Additional Family Medical History / Comment(s): bleeding ulcers General Exam - General Exam Comments Initial Comments: GENERAL: Patient is well-developed and well-nourished. Patient is nontoxic and well- hydrated and is in no distress. ENT: Neck is soft and supple. No significant lymphadenopathy is noted. Oropharynx is clear. Moist mucous membranes. Neck has full range of motion without eliciting any pain. EYES: The sclera were anicteric and conjunctiva were pink and moist. Patient has nystagmus which she states is normal for her. PULMONARY: Unlabored respirations. Good breath sounds bilaterally. No audible rales rhonchi or wheezing was noted. CARDIOVASCULAR: There is a regular rate and rhythm without any murmurs gallops or rubs. ABDOMEN: Soft and nontender with normal bowel sounds. SKIN: Skin is clear with no lesions or rashes and otherwise unremarkable. NEUROLOGIC: Patient is alert and oriented x3. Cranial nerves II through XII are grossly intact. Motor and sensory are also intact. Normal speech, volume and content. Symmetrical smile. MUSCULOSKELETAL: Normal extremities with adequate strength and full range of motion. LYMPHATICS: No significant lymphadenopathy is noted PSYCHIATRIC: Patient seems mildly depressed. Limitations: no limitations Course Vital Signs 05/27/17 05/27/17 19:26 20:14 Temperature 97.8 F Pulse Rate 108 H Pulse Rate [ 104 H Legal Referee ] Respiratory 16 Rate Blood Pressure 124/83 O2 Sat by Pulse 98 Oximetry Disposition Clinical Impression: Paresthesia, Anxiety Disposition: HOME SELF-CARE Instructions: Paresthesia (ED) Additional Instructions: Patient should start taking her Xanax as prescribed. Prescriptions: Ondansetron Odt [Zofran Odt] 4 mg PO Q8HR PRN #10 PRN Reason: Nausea And Vomiting Referrals: Francisco Javier Duvall MD [Primary Care Provider] - 1-2 days Time of Disposition: 20:35
[2017-05-27 20:49] VITALS: BP 126/87; PULSE 100; RESP 18; TEMP 98
== END 2017-05-27 20:48 | disposition home or self-care (01) ==
LOC: EC 19:12
DX: R20.9 Unspecified disturbances of skin sensation (principal); F41.9 Anxiety disorder, unspecified; G40.909 Epilepsy, unspecified, not intractable, without status epilepticus; F32.9 Major depressive disorder, single episode, unspecified; F17.200 Nicotine dependence, unspecified, uncomplicated; Z79.899 Other long term (current) drug therapy; Z88.0 Allergy status to penicillin; Z88.1 Allergy status to other antibiotic agents; Z88.6 Allergy status to analgesic agent; Z88.8 Allergy status to other drugs, medicaments and biological substances
CPT/HCPCS: 99284; 96372; J1885

== ENCOUNTER 2017-06-04 14:35 | Observation (INO) | payer OTHER ==
[2017-06-04 16:22] LABS: Basophils % (A) 0 %; CH 32.3; CHCM 33.7; Eosinophils # (A) 0.1 k/uL (0-0.7); Eosinophils % (A) 1 %; HDW 2.28; HGB 13.2 gm/dL (11.4-16.0); Luc # (Auto) 0.17; Luc % (Auto) 3; Lymphocytes # (A) 2.3 k/uL (1.0-4.8); Lymphocytes % (A) 36 %; MCH 31.8 pg (25.0-35.0); MCV 96.4 fL (80.0-100.0); Mean Platelet Volume 7.1; Monocytes # (A) 0.4 k/uL (0-1.0); Monocytes % (A) 6 %; Neutrophils # (A) 3.4 k/uL (1.3-7.7); Neutrophils % (A) 53 %; RBC 4.16 m/uL (3.80-5.40); RDW 13.6 % (11.5-15.5); WBC 6.4 k/uL (3.8-10.6); WBC (Perox) 6.57
[2017-06-04 16:31] LABS: ALT 25 U/L (9-52); AST 13 U/L (14-36); Alkaline Phosphatase 61 U/L (38-126); Anion Gap 12 mmol/L; Blood Urea Nitrogen 14 mg/dL (7-17); Calcium 9.7 mg/dL (8.4-10.2); Carbon Dioxide 19 mmol/L (22-30); Chloride 109 mmol/L (98-107); Glucose 88 mg/dL (74-99); Non-African American GFR(MDRD) >60 (>60 ml/min/1.73 sqM); Sodium 140 mmol/L (137-145); Total Bilirubin 0.4 mg/dL (0.2-1.3); Total Protein 7.1 g/dL (6.3-8.2)
[2017-06-04 16:37] VITALS: BMI 17.9
[2017-06-04] MEDS ORDERED: ACETAMINOPHEN TAB 500 MG TAB PO PRN (17:57)
[2017-06-04] MEDS: SODIUM CHLORIDE 0.9% 1,000 ML IV SCH (18:13)
[2017-06-04] MEDS ORDERED: KETOROLAC 30 MG/ML 1 ML VIAL IM PRN (19:59)
[2017-06-04] MEDS: TOPIRAMATE 100 MG TAB PO SCH (21:20)
[2017-06-05 01:01] LABS: Amorphous Sediment,Urine Rare /hpf; Appearance,Urine Turbid (Clear); Bilirubin,Urine Negative (Negative); Glucose,Urine (UA) Negative (Negative); Ketones,Urine Negative (Negative); Leukocyte Esterase,Urine Negative (Negative); Mucus,Urine Occasional /hpf; Nitrite,Urine Negative (Negative); Particle Count 10701; Protein,Urine Trace (Negative); RBC,Urine 1 /hpf (0-5); Specific Gravity,Urine 1.017 (1.001-1.035); Squamous Epithelial Cell,Urine 3 /hpf (0-4); UA Billing (MACRO vs. MICRO) MICRO; Urobilinogen,Urine <2.0 mg/dL (<2.0); WBC,Urine 14 /hpf (0-5)
--- NOTE | 2017-06-05 06:44 | CONS ---
CONSULTATION DATE OF CONSULTATION: 06/04/2017 CHIEF COMPLAINT: History of seizures. HISTORY OF PRESENT ILLNESS: The patient is a 27-year-old, female, who is being evaluated by the neurology service per the request of Dr. Duvall for history of seizures. The patient states that she has had seizures for several years and is currently being managed on Topamax 200 mg in the morning and 100 mg at night. Her seizures had been well-controlled until she had a breakthrough seizure earlier this month according to her. Unfortunately, her mother earlier this month and she had a breakthrough seizure on that day. She has not had any further seizures since. The patient states that she has been having significant numbness and tingling. In her arms and legs over the past few weeks. She informs me that she had been on MS Contin and oxycodone for several years for history of chronic eye pain. She states that she has had multiple eye surgeries during her childhood and has been suffering with chronic pain ever since. It is unclear why her MS Contin and oxycodone were discontinued. She is also complaining of some neck pain that has been present for several weeks. She denies any recent injury. The patient states that she is legally blind. PAST MEDICAL HISTORY: Chronic pain syndrome, seizure disorder, history of multiple eye surgeries, history of pancreatitis, previous history of renal failure with dialysis, which has since resolved. She also has history of depression and anxiety disorder. SOCIAL HISTORY: The patient is a current every day smoker. She denies any alcohol or IV drug use. FAMILY HISTORY: Noncontributory. HOME MEDICATIONS: Reviewed in the chart. ALLERGIES: ACETAMINOPHEN, AMOXICILLIN, AZITHROMYCIN, WELLBUTRIN, DEPAKOTE. REVIEW OF SYSTEMS: As mentioned above and otherwise negative. PHYSICAL EXAM: Vital signs show a temperature of 98.2, pulse 101, respiration 16, blood pressure 90/63. GENERAL APPEARANCE: The patient is a thin female, who appears to be anxious. HEENT: Normocephalic, atraumatic. Bilateral eye nystagmus is present, no facial asymmetry is seen. NECK: Supple with no masses felt. Tenderness to palpation is felt along the posterior cervical spine. There is decreased cervical extension due to pain. CARDIOVASCULAR: Regular rate and rhythm. ABDOMEN: Nontender, nondistended. Extremities showed no edema or clubbing. NEUROLOGICAL EXAM: The patient is alert, aware and oriented x3. Speech and language are normal. Cranial nerve testing showed decreased visual acuity and bilateral eye nystagmus. Strength is full in all 4 extremities. Sensory exam was normal to light touch in all 4 extremities. No facial asymmetry is seen. Mild postural tremors are noticed. No seizure-like activity is seen. IMPRESSION: 1. Seizure disorder. 2. Chronic pain syndrome. 3. Opiate withdrawals. 4. Neck pain. RECOMMENDATION: The patient's seizures appear to be well controlled on her current dose of Topamax. She did have a single breakthrough seizure, which was likely induced by stress as this occurred the day her mother earlier this month. I will keep her on Topamax 200 mg in the morning and 100 mg at night. An EEG has been ordered. I do not recommend restarting any opiate analgesics. She has been off of morphine and oxycodone since the first week of May according to her. I will give her Toradol 30 mg IM every 8 hours as needed. As for her neck pain, she appears to have facet joint arthropathy given her pain on cervical extension and given the tenderness to palpation felt along the posterior cervical spine. If this continues, further treatment options can be addressed in the outpatient setting. Continue the rest of your current workup and management. I will continue to follow with you. Further recommendations to follow. Thank you, Dr. Duvall for allowing me to participate in the care of your patient. If you have any questions, please feel free to contact me. MARGO / YARITZAN: [id number] /
[2017-06-05] MEDS: ALPRAZolam 0.5 MG TAB PO PRN ×4 (08:47→23:53)
[2017-06-05] MEDS: KETOROLAC 30 MG/ML 1 ML VIAL IVP PRN ×3 (08:48→23:48)
[2017-06-05] MEDS: SODIUM CHLORIDE 0.9% 1,000 ML IV SCH ×3 (08:54→18:25)
[2017-06-05 10:04] VITALS: RESP 16
--- NOTE | 2017-06-05 10:45 | P.HPIM ---
History of Present Illness H&P Date: 06/05/17 Chief Complaint: Dehydration and abdominal pain This is a 27-year-old female who was seen in the outpatient setting at Dr. Duvall's office yesterday. The patients brother accompanied her to the office and states that ever since she was taken off her pain medications she is not doing well, but was vague in signs and symptoms. The patient has a history of seizure disorder, with her last seizure approximately three weeks ago when her mother , chronic pain disorder , legally blind, anxiety, depression, kidney and liver failure in 2010 that require dialysis which has resolved, pancreatitis, chronic eye pain with multiple eye surgeries. The patient was admitted to the hospital with a diagnosis of dehydration and seizure disorder under the care of Dr. Duvall. Neurology was consulted for history of seizure disorder. She is also complaining of neck pain, which neurology thinks the patient may have facet joint arthropathy. Dr. Banuelos recommends following up outpatient in regards to neck pain. An EEG was ordered. She has had no seizure activity noted. The patient had been taking MS Contin and oxycodone for eye pain and headaches. Dr. Duvall recommended stopping these medications and the patient has been off of narcotics for 3 weeks. She has no withdrawal symptoms at this time. She was also complaining of abdominal pain. An abdominal ultrasound was ordered and results are pending. Toradol 30 mg IM was ordered for the patient for pain but she refused it last night. The patient was seen and examined this morning on rounds with Dr. Duvall. She is awake and alert. No seizure activity was noted. Seizure pads are in place. She continues to complain of neck pain. She denies any headache at this time. She does not complain of pain in her abdomen upon palpation. She is nothing by mouth at this time due to scheduled ultrasound, but patient may be started on a diet after ultrasound is completed. She denies any nausea or vomiting. Her lab work has been reviewed. Her vital signs have been stable. Her systolic blood pressure is ranging from 97-103. She is afebrile. Review of Systems Those systems with pertinent positive or pertinent negative responses have been documented in the HPI Past Medical History Past Medical History: Blood Disorder, Seizure Disorder Additional Past Medical History / Comment(s): pancreatitis,anemia, eye disorder? had scar tissue removed in past; kidney and liver failure with dialysis 2010- resolved now. History of Any Multi-Drug Resistant Organisms: None Reported Past Surgical History: Ear Surgery Additional Past Surgical History / Comment(s): eye surgeries(scar tissue), tubes in ears, wisdom teeeth removed. Past Anesthesia/Blood Transfusion Reactions: No Reported Reaction Additional Past Anesthesia/Blood Transfusion Reaction / Comment(s): when previous intubate patient swelled up from medication Past Psychological History: Anxiety, Depression Smoking Status: Current every day smoker Past Alcohol Use History: None Reported Past Drug Use History: None Reported - Past Family History Mother Family Medical History: Cancer Additional Family Medical History / Comment(s): total hysterectomy, cleaned out scar tissue in abdomen, endometriosis, herniated and bulging disc in back Father Additional Family Medical History / Comment(s): bleeding ulcers Medications and Allergies Home Medications Medication Instructions Recorded Confirmed Type ALPRAZolam [Xanax] 1 mg PO 5XD PRN 02/02/17 06/04/17 History Topiramate [Topamax] 200 mg PO QAM 02/02/17 06/04/17 History Topiramate [Topamax] 100 mg PO HS 05/17/17 06/04/17 History Ondansetron Odt [Zofran Odt] 4 mg PO Q8HR PRN #10 05/27/17 06/04/17 Rx Allergies Allergy/AdvReac Type Severity Reaction Status Date / Time acetaminophen AdvReac Severe Liver & Verified 06/04/17 16:41 Kidney Failure amoxicillin AdvReac Abdominal Verified 06/04/17 16:41 Pain azithromycin AdvReac Abdominal Verified 06/04/17 16:41 Pain bupropion HCl AdvReac Seizure Verified 06/04/17 16:41 [From Wellbutrin] divalproex sodium AdvReac Abdominal Verified 06/04/17 16:41 [From Depakote] Pain Physical Exam Vitals: Vital Signs Temp Pulse Resp BP Pulse Ox 06/05/17 08:00 98.4 F 87 16 97/66 98 06/05/17 00:57 97.7 F 92 17 103/70 96 06/05/17 00:00 16 06/04/17 20:00 16 06/04/17 19:00 98.8 F 96 16 98/66 99 06/04/17 15:56 98.2 F 101 H 16 90/63 98 Intake and Output 06/04/17 06/05/17 06/05/17 22:59 06:59 14:59 Intake Total 1460 1440 Output Total 400 Balance 1460 1040 Intake: Intake, IV Titration 960 960 Amount Sodium Chloride 0.9% 1, 960 960 000 ml @ 120 mls/hr IV . Q8H20M CHARLES Rx#:[id number] Oral 500 480 Output: Urine 400 Other: Voiding Method Toilet Toilet # Voids 2 1 Weight 39.009 kg GENERAL: Alert and oriented. Appears in no acute distress. Pleasant. Seizure pads in place. Pain and tenderness noted upon palpation of cervical spine RESPIRATORY: Lungs clear bilaterally. No use of accessory muscles. Patient maintaining oxygen saturation greater than 92%. CARDIOVASCULAR: S1 and S2 noted. No murmurs auscultated. No JVD noted. EXTREMITIES: No edema noted. Palpable pedal pulses +2. ABDOMEN: No distention noted. Abdomen soft and round. Normal active bowel sounds auscultated 4 quadrants. No pain or tenderness noted upon palpation. Results CBC & Chem 7: 06/04/17 16:07 06/04/17 16:07 Labs: Abnormal Lab Results - Last 24 Hours (Table) 06/04/17 06/04/17 Range/Units 16:07 20:50 Chloride 109 H (98-107) mmol/L Carbon Dioxide 19 L (22-30) mmol/L AST 13 L (14-36) U/L Urine Appearance Turbid H (Clear) Urine Protein Trace H (Negative) Urine WBC 14 H (0-5) /hpf Amorphous Sediment Rare H (None) /hpf Urine Mucus Occasional H (None) /hpf Thrombosis Risk Factor Assmnt - Choose All That Apply Any of the Below Risk Factors Present?: No Other Risk Factors: No Thrombosis Risk Factor Assessment Level: Very Low Risk Assessment and Plan Plan: ASSESSMENT: -Seizure disorder, no seizure activity noted -Dehydration, present on admission -Abdominal pain, present on admission, etiology unknown, ultrasound pending -Chronic pain disorder -Cervical neck pain, possible facet joint arthropathy -Nicotine dependence, current cigarette smoker -Generalized anxiety disorder -Depression -Legally blind -History of migraines PLAN: -Neurology on consult. Appreciate recommendations and input -Await EEG results -Ultrasound of abdomen ordered -Resume diet after ultrasound -Change Toradol to [address] Duvall -Avoid narcotics as patient has been weaned off MS Contin and oxycodone in the outpatient setting -Continue IV hydration -Seizure precautions -Resume home meds as appropriate -Monitor labs -GI prophylaxis: Protonix 40 mg by mouth daily -DVT prophylaxis: Heparin 5000 units subcu every 8 hours -Monitor vital signs and address as appropriate The above impression and plan of care have been discussed and directed by signing physician. Mara Reynoso, nurse practitioner, acting as scribe for signing physician.
--- NOTE | 2017-06-05 11:29 | US ---
EXAMINATION TYPE: US abdomen complete DATE OF EXAM: 06/05/2017 COMPARISON: 07/10/2016 CLINICAL HISTORY: ABD PAIN. Patients states being on dialysis in 2010, NPO EXAM MEASUREMENTS: Liver Length: 13.3 cm Gallbladder Wall: 0.1 cm CBD: 0.2 cm CHD: 0.3 cm Spleen: 8.6 cm Right Kidney: 8.1 x 4.4 x 4.7 cm Left Kidney: 8.5 x 4.7 x 5.4 cm Pancreas: wnl Liver: wnl Gallbladder: wnl, fold seen Evidence for sonographic Jurado's sign: neg CBD: wnl CHD: wnl Spleen: wnl Right Kidney: Within normal limits. No evidence of hydronephrosis or nephrolithiasis. Left Kidney: Within normal limits. No evidence of hydronephrosis or nephrolithiasis. Upper IVC: wnl Abd Aorta: wnl, no AAA seen The liver is homogenous. The intrahepatic portion of the IVC and proximal abdominal aorta are within normal limits. There is no evidence of cholelithiasis. Common bile duct is unremarkable. The visu alized portions of the pancreas are homogenous. The spleen is unremarkable. Kidneys are symmetric a nd free of hydronephrosis. No renal lesions are seen. IMPRESSION: No evidence of cholelithiasis, sonographic evidence of acute cholecystitis, hydronephrosi s, or nephrolithiasis. Unremarkable exam.
[2017-06-05] MEDS: TOPIRAMATE 100 MG TAB PO SCH ×2 (11:30→22:30)
[2017-06-05] MEDS: HEPARIN SODIUM,PORCINE 5,000 UNIT/ML 1 ML VIAL SQ SCH ×2 (15:43→23:55)
--- NOTE | 2017-06-05 17:33 | P.PN ---
Subjective Principal diagnosis: Patient is a pleasant 27-year-old female who is being followed by the neurology service for history of seizures. Patient is known to us through our office. Patient has had history of seizures for several years and has been managed on Topamax 200 mg in the morning and 100 mg at night. Patient had a breakthrough seizure earlier this month due to stress of in the family. Patient does have history of chronic eye pain for which she had been on MS Contin and oxycodone for several years. Patient recently taken off MS Contin and oxycodone and doing well. Patient has not had any seizures since admission. Patient also has neck pain which has been present for several weeks. Patient is legally blind. At the time of my evaluation, patient is resting comfortably in bed eating [employer] and appears to be in no acute distress. Objective - Vital Signs Vital signs: Vital Signs Temp 98.0 F 06/05/17 15:00 Pulse 90 06/05/17 15:00 Resp 16 06/05/17 15:00 BP 100/64 06/05/17 15:00 Pulse Ox 99 06/05/17 15:00 Intake & Output 06/04/17 06/05/17 06/05/17 18:59 06:59 18:59 Intake Total 2900 1000 Output Total 400 Balance 2500 1000 Weight 39.009 kg 39.009 kg Intake: Intake, IV Titration 1920 1000 Amount Sodium Chloride 0.9% 1, 1920 1000 000 ml @ 120 mls/hr IV . Q8H20M [facility]LES Rx#:[id number] Oral 980 Output: Urine 400 Other: Voiding Method Toilet Toilet # Voids 1 2 - Exam PHYSICAL EXAM: GENERAL APPEARANCE: Patient is a well-developed, female who appears to be in no acute distress. HEENT: Normocephalic, atraumatic, no facial asymmetry is seen. Neck is supple with no masses felt. CARDIOVASCULAR: Regular rate and rhythm. ABDOMEN: Nontender, nondistended. EXTREMITIES: Show no edema or clubbing. NEUROLOGICAL EXAM: Patient is awake, alert, and oriented 3. Speech and language are normal. Cranial nerve testing shows decreased visual acuity in bilateral eye nystagmus. Strength is full in all 4 extremities. Sensory exam is normal to light touch in all 4 extremities. No facial asymmetry is seen. Mild postural tremors are noticed. No seizure-like activity is seen. - Labs CBC & Chem 7: 06/04/17 16:07 06/04/17 16:07 Labs: Abnormal Lab Results - Last 24 Hours (Table) 06/04/17 06/04/17 Range/Units 20:50 20:50 Urine Appearance Turbid H (Clear) Urine Protein Trace H (Negative) Urine WBC 14 H (0-5) /hpf Amorphous Sediment Rare H (None) /hpf Urine Mucus Occasional H (None) /hpf U Benzodiazepines Scrn Positive H (Negative) ng/mL U Cannabinoids Screen Positive H (Negative) ng/mL Microbiology - Last 24 Hours (Table) 06/04/17 20:50 Urine Culture - Preliminary Urine,Voided Assessment and Plan Plan: Impression: 1. Seizure disorder 2. Tonic pain syndrome 3. Neck pain 4. Legal blindness 5. Postural tremors Recommendations: The patient's seizures appear to be well-controlled on Topamax 200 mg in the morning and 100 mg at night. Patient is asking that she not have to take 2 Topamax pills in the morning. I will prescribe her Topamax 200 mg tablets to be taken in the morning and 100 mg tablets to be taken in the evening. Patient states her brother sets up her medication for her. I will start her back on primidone 50 mg half tablet at daily at bedtime. Patient will follow up in the office and we could make adjustments to this as needed. As for her neck pain, this can be further addressed in the outpatient setting. Patient is stable for discharge from a neurological standpoint. I will continue to follow with you on an as-needed basis. Feel free to call with any questions or concerns. I performed an examination of the patient and discussed the management with the OIL AGENT. I have reviewed the OIL AGENT notes and agree with the findings and plan of care.
[2017-06-05] MEDS: PRIMIDONE 25 MG TAB PO SCH (18:24)
[2017-06-05] MEDS: NICOTINE 14MG/24HR PATCH TRANSDERM SCH (18:25)
[2017-06-05] MEDS: ONDANSETRON 4 MG/2 ML VIAL IVP PRN (19:35)
[2017-06-06] MEDS ORDERED: PANTOPRAZOLE 40 MG TABLET PO SCH (07:30)
[2017-06-06 09:02] LABS: Basophils % (A) 0 %; CH 31.6; CHCM 32.2; Eosinophils # (A) 0.1 k/uL (0-0.7); Eosinophils % (A) 2 %; HCT 34.5 % (34.0-46.0); HGB 11.2 gm/dL (11.4-16.0); Luc # (Auto) 0.15; Luc % (Auto) 2; Lymphocytes # (A) 1.8 k/uL (1.0-4.8); Lymphocytes % (A) 28 %; MCH 31.9 pg (25.0-35.0); MCHC 32.4 g/dL (31.0-37.0); MCV 98.4 fL (80.0-100.0); Mean Platelet Volume 7.7; Monocytes # (A) 0.5 k/uL (0-1.0); Monocytes % (A) 7 %; Neutrophils # (A) 3.7 k/uL (1.3-7.7); Neutrophils % (A) 59 %; RBC 3.51 m/uL (3.80-5.40); RDW 13.2 % (11.5-15.5); WBC 6.2 k/uL (3.8-10.6); WBC (Perox) 6.28
[2017-06-06] MEDS: SODIUM CHLORIDE 0.9% 1,000 ML IV SCH ×2 (09:15→09:43)
[2017-06-06] MEDS: HEPARIN SODIUM,PORCINE 5,000 UNIT/ML 1 ML VIAL SQ SCH (09:16)
[2017-06-06] MEDS: NICOTINE 14MG/24HR PATCH TRANSDERM SCH (09:16)
[2017-06-06] MEDS: PRIMIDONE 25 MG TAB PO SCH (09:17)
[2017-06-06] MEDS: TOPIRAMATE 100 MG TAB PO SCH (09:17)
[2017-06-06] MEDS: ONDANSETRON 4 MG/2 ML VIAL IVP PRN (09:23)
[2017-06-06] MEDS: ALPRAZolam 0.5 MG TAB PO PRN (09:23)
[2017-06-06] MEDS: KETOROLAC 30 MG/ML 1 ML VIAL IVP PRN (09:23)
[2017-06-06 09:27] LABS: AST 17 U/L (14-36); Alkaline Phosphatase 51 U/L (38-126); Anion Gap 6 mmol/L; Blood Urea Nitrogen 12 mg/dL (7-17); Calcium 8.7 mg/dL (8.4-10.2); Carbon Dioxide 14 mmol/L (22-30); Glucose 90 mg/dL (74-99); Non-African American GFR(MDRD) >60 (>60 ml/min/1.73 sqM); Potassium 4.4 mmol/L (3.5-5.1); Sodium 142 mmol/L (137-145); Total Bilirubin <0.1 mg/dL (0.2-1.3); Total Protein 5.2 g/dL (6.3-8.2)
[2017-06-06 09:38] VITALS: BP 115/77; PULSE 80; TEMP 98.2
[2017-06-06 09:48] LABS: Chloride 122 mmol/L (98-107)
[2017-06-06 10:09] LABS: ALT 20 U/L (9-52)
--- NOTE | 2017-06-06 12:57 | DS ---
DISCHARGE SUMMARY DATE OF ADMISSION: 06/04/2017 DATE OF DISCHARGE: 06/06/2017 DISCHARGE DIAGNOSIS: 1. Dehydration with seizure precaution. 2. History of chronic headaches, sub-migraine type. 3. Anxiety neurosis. 4. Congenital blindness. 5. Opiate withdrawal. This was a 27-year-old, white female with a history of seizure disorder here approximately 3 weeks ago. At that period of time, she had found a of medications and her drug screen and she was cautioned about it. Of interest, she did not take any of her Topamax for several days. She was placed her on Topamax and did fine. She came to the office after I had taken her off all her pain medication and she has been through about a 2-week period of withdrawal, but did well. he ended up with 3+ ketones and greater than 1030 specific gravity on her urine evidence of her not drinking enough fluid. Was placed in the hospital with dehydration. She was given IV fluids. She also had some nonspecific abdominal pain in the left upper quadrant. Ultrasound completed in the hospital was negative. At this period of time, Dr. Banuelos was consulted from neurology point of view. She was actually on his list to see him on an outpatient basis. He is now following up with her seizure medications accordingly and will follow up with her in the office. She continued to improve to the point that she feels good today. No headache. Her hydration has resumed to normal and she has had no seizures while she was here. She had an EEG which was completed also here which was stable. At this time, she is being discharged home. Her medications on discharge will be: 1. Xanax , she takes one with meals and then two at bedtime. 2. She is on Topamax 200 mg in the morning and 100 at night. 3. She is back on primidone 50 mg daily. 4. Nicotine patch. 5. Tylenol 500 every 6 hours p.r.n. headaches. Activity as tolerated with and she is under the control of her dad and also her brother and sister. She will be on a regular diet. She will follow up with me in a week and then follow up with Dr. Banuelos within a 2- week period of time. MMODL / IJN: [id number] /
--- NOTE | 2017-06-06 16:08 | P.PN ---
Subjective Principal diagnosis: Patient is a pleasant 27-year-old female who is being followed by the neurology service for history of seizures. Patient is known to us through our office. Patient has had history of seizures for several years and has been managed on Topamax 200 mg in the morning and 100 mg at night. Patient had a breakthrough seizure earlier this month due to stress of in the family. Patient does have history of chronic eye pain for which she had been on MS Contin and oxycodone for several years. Patient recently taken off MS Contin and oxycodone and doing well. Patient has not had any seizures since admission. Patient also has neck pain which has been present for several weeks. Patient is legally blind. At the time of my evaluation, patient is resting comfortably in bed eating [employer] and appears to be in no acute distress. 06/06/2017 Patient is a pleasant 27-year-old female who is being followed by the neurology service for history of seizures. Patient has not had any seizure activity reported or noted since admission. Patient had seizure earlier this month most likely brought on by stress. Patient was recently taken off her pain medication which she had been on for several years due to eye pain. Patient also complains of neck pain. Patient is legally blind. At the time of my evaluation, patient is resting comfortably in bed and appears to be in no acute distress. Objective - Vital Signs Vital signs: Vital Signs Temp 98.2 F 06/06/17 07:00 Pulse 80 06/06/17 07:00 Resp 16 06/06/17 07:00 BP 115/77 06/06/17 07:00 Pulse Ox 99 06/06/17 07:00 Intake & Output 06/05/17 06/06/17 06/06/17 18:59 06:59 18:59 Intake Total 1000 3020 Balance 1000 3020 Weight 39.009 kg 39.009 kg Intake: Intake, IV Titration 1000 1920 Amount Sodium Chloride 0.9% 1, 1000 1920 000 ml @ 120 mls/hr IV . Q8H20M [facility] Rx#:[id number] Oral 1100 Other: Voiding Method Toilet Toilet # Voids 2 2 - Exam PHYSICAL EXAM: GENERAL APPEARANCE: Patient is a well-developed, female who appears to be in no acute distress. HEENT: Normocephalic, atraumatic, no facial asymmetry is seen. Neck is supple with no masses felt. CARDIOVASCULAR: Regular rate and rhythm. ABDOMEN: Nontender, nondistended. EXTREMITIES: Show no edema or clubbing. NEUROLOGICAL EXAM: Patient is awake, alert, and oriented 3. Speech and language are normal. Cranial nerve testing shows decreased visual acuity in bilateral eye nystagmus. Strength is full in all 4 extremities. Sensory exam is normal to light touch in all 4 extremities. No facial asymmetry is seen. Mild postural tremors are noticed. No seizure-like activity is seen. - Labs CBC & Chem 7: 06/06/17 08:23 06/06/17 08:23 Labs: Abnormal Lab Results - Last 24 Hours (Table) 06/06/17 06/06/17 Range/Units 08:23 08:23 RBC 3.51 L (3.80-5.40) m/uL Hgb 11.2 L (11.4-16.0) gm/dL Chloride 122 H* (98-107) mmol/L Carbon Dioxide 14 L (22-30) mmol/L Total Bilirubin <0.1 L (0.2-1.3) mg/dL Total Protein 5.2 L (6.3-8.2) g/dL Albumin 2.7 L (3.5-5.0) g/dL Microbiology - Last 24 Hours (Table) 06/04/17 20:50 Urine Culture - Final Urine,Voided 06/04/17 18:40 Blood Culture - Preliminary Blood No Growth after 24 hours 06/04/17 18:29 Blood Culture - Preliminary Blood No Growth after 24 hours Assessment and Plan Plan: Impression: 1. Seizure disorder 2. Tonic pain syndrome 3. Neck pain 4. Legal blindness 5. Postural tremors Recommendations: The patient's seizures appear to be well-controlled on Topamax 200 mg in the morning and 100 mg at night. Patient is asking that she not have to take 2 Topamax pills in the morning. I will prescribe her Topamax 200 mg tablets to be taken in the morning and 100 mg tablets to be taken in the evening. Patient states her brother sets up her medication for her. She may continue primidone 50 mg half tablet at daily at bedtime for her tremors. Patient will follow up in the office and we could make adjustments to this as needed. As for her neck pain, this can be further addressed in the outpatient setting. Patient is stable for discharge from a neurological standpoint. I will continue to follow with you on an as-needed basis. Feel free to call with any questions or concerns. I performed an examination of the patient and discussed the management with the ACCOUNTING ANALYST. I have reviewed the ACCOUNTING ANALYST notes and agree with the findings and plan of care.
--- NOTE | 2017-06-08 19:05 | EEG ---
ELECTROENCEPHALOGRAM REPORT DATE OF SERVICE: 06/05/2017. REASON FOR TESTING: Seizure. CURRENT ANTIEPILEPTIC MEDICATIONS: Topamax. DESCRIPTION OF THE PROCEDURE: This EEG was performed using a 21 channel digital electroencephalograph, following international 10-20 system. DESCRIPTION OF THE RECORDING: From the from the beginning of the tracing, with patient's eyes closed, the background rhythm was mostly consisting of 9-10 hertz alpha frequency in the posterior occipital leads. No obvious asymmetry is seen. Hyperventilation was performed with a minimal buildup of amplitude seen. Again, no pathological waves were elicited. Photic stimulation was performed with a good driving response seen. No pathological waves were elicited. Occasional movement artifacts are seen. The patient remains awake throughout the tracing. No epileptiform discharges were noticed. Her EKG lead showed a regular rate and rhythm. INTERPRETATION: This awake EEG can be considered within normal limits. There is no asymmetry seen. No epileptiform discharges were noticed. The absence of epileptiform discharges does not rule out the diagnosis of epilepsy, therefore clinical correlation is recommended. MMODL / IJN: [id number] /
== END 2017-06-06 13:10 | disposition home or self-care (01) ==
LOC: 3SUR 15:12 → INTOOBSV 15:12
PROVIDERS: ADMIT Family Medicine; ATTEND Family Medicine
DX: E86.0 Dehydration (principal); G40.909 Epilepsy, unspecified, not intractable, without status epilepticus; G43.909 Migraine, unspecified, not intractable, without status migrainosus; R25.1 Tremor, unspecified; F11.23 Opioid dependence with withdrawal; H54.8 Legal blindness, as defined in USA; R10.12 Left upper quadrant pain; G89.4 Chronic pain syndrome; M54.2 Cervicalgia; F17.210 Nicotine dependence, cigarettes, uncomplicated; F41.1 Generalized anxiety disorder; F32.9 Major depressive disorder, single episode, unspecified; H57.10 Ocular pain, unspecified eye; Z88.6 Allergy status to analgesic agent; Z88.1 Allergy status to other antibiotic agents; Z88.0 Allergy status to penicillin; Z88.8 Allergy status to other drugs, medicaments and biological substances
CPT/HCPCS: 96376 ×2; 96361 ×2; 96374; 96375; 95819; 80053 ×2; 85025 ×2; 81001; 87040; 80306; 87086; 76700; G0378 ×3; G0379; S4990; J2405 ×2; J1885 ×2

== ENCOUNTER → 2018-06-18 | Outpatient (CLI) | payer OTHER ==
--- NOTE | 2018-06-18 12:34 | US ---
EXAMINATION TYPE: US abdomen complete DATE OF EXAM: 06/18/2018 COMPARISON: NONE CLINICAL HISTORY: R11.2 NAUSEA AND VOMITING. N/V x 1 month EXAM MEASUREMENTS: Liver Length: 13.8 cm Gallbladder Wall: 0.2 cm CBD: 0.5 cm Spleen: 9.3 cm Right Kidney: 8.4 x 3.9 x 4.0 cm Left Kidney: 9.1 x 4.9 x 4.5 cm Pancreas: wnl Liver: wnl Gallbladder: wnl Evidence for sonographic Jurado's sign: no CBD: wnl Spleen: wnl Right Kidney: small in size Left Kidney: wnl Upper IVC: wnl Abd Aorta: wnl IMPRESSION: 1. Normal abdomen ultrasound.
== END ==
LOC: RADUSWWP 09:35
PROVIDERS: ATTEND Family Medicine
DX: R10.84 Generalized abdominal pain (principal)
CPT/HCPCS: 76700

== ENCOUNTER → 2018-07-06 | Outpatient (CLI) | payer OTHER ==
--- NOTE | 2018-07-19 18:39 | EEG ---
ELECTROENCEPHALOGRAM REPORT DATE OF SERVICE: 07/06/2018. REASON FOR TESTING: Seizures. CURRENT ANTIEPILEPTIC MEDICATIONS: Topamax. DESCRIPTION OF THE PROCEDURE: This EEG was performed using a 21 channel digital electroencephalograph, following international 10-20 system. DESCRIPTION OF THE RECORDING: From the beginning of the tracing, and with patient's eyes closed, the background rhythm was mostly consisting of 10-11 Hz alpha frequency in the posterior occipital leads. Frequent movement and muscle artifacts are seen initially. Photic stimulation was performed with a minimal driving response seen. No pathological waves were elicited. Hyperventilation was not performed. The patient remains awake throughout the tracing. No epileptiform discharges were seen. Her EKG lead showed a regular rate and rhythm. INTERPRETATION: This awake EEG can be considered within normal limits. There was no asymmetry seen. No epileptiform discharges were noticed. The absence of epileptiform discharges does not rule out the diagnosis of epilepsy; therefore clinical correlation is recommended. Thank you, Dr. Duvall for allowing me to participate in the care of your patient. If you have any questions, please feel free to contact me. MARGO / IJN: [id number] /
== END | disposition home or self-care (01) ==
LOC: NEUROMAIN 13:08
PROVIDERS: ATTEND Family Medicine
DX: G40.909 Epilepsy, unspecified, not intractable, without status epilepticus (principal)
CPT/HCPCS: 95816